=== PATIENT | male | born 1945 | race Caucasian/White ===

== ENCOUNTER 2016-11-02 23:00 | Emergency (ER) | payer MEDICAID ==
[~2016-11-02] VITALS: Ht 162.6 cm; Wt 88.9 kg
[~2016-11-02 23:00] MED LIST: ACID1TAB7 PO; ASPI-496 PO; ASPI-515 PO; AZIT500T PO; CEFD300C37 PO; CLIN300C93 PO; DOXY100T PO; FLUO20CA19 PO; FLUT1DIS3 INH; INSULIN 70/30 SQ; METH4TAB PO; METO25TA35 PO; METO25TA91 PO; NITR0.4T8 SL; NPH,100V SQ; NPH,100V4 SQ-INSULIN; OXYC1TAB8 PO; PRED10TA PO; PRED50TA PO; PREG50CA PO; SIMV10TA PO; SULF1TAB3 PO; TRAM50TA2 PO
[2016-11-02 23:25] VITALS: BP 131/66
== END 2016-11-02 23:47 | disposition left against medical advice (07) ==
LOC: ED 23:22
DX: F15.10 Other stimulant abuse, uncomplicated (principal); E11.9 Type 2 diabetes mellitus without complications; I10 Essential (primary) hypertension; E78.5 Hyperlipidemia, unspecified; I48.91 Unspecified atrial fibrillation; J44.9 Chronic obstructive pulmonary disease, unspecified; Z95.5 Presence of coronary angioplasty implant and graft
CPT/HCPCS: 99281

== ENCOUNTER 2016-11-10 16:58 | Observation (INO) | payer MEDICAID ==
[~2016-11-10] VITALS: Ht 182.9 cm; Wt 91.2 kg
[2016-11-10] MEDS ORDERED: SODIUM CHLORIDE FLUSH 10ML SYR IVF ONE (18:00)
[2016-11-10 18:09] LABS: ASPARTATE AMINO TRANSFERASE 21 U/L (15-37); BLOOD UREA NITROGEN 23 mg/dL (7-18)
[2016-11-10 18:19] LABS: IS PT STATUS REG ER OR PRE ER? YES
[2016-11-10 18:30] LABS: DAU SCREEN DISCLAIMER
[2016-11-10] MEDS ORDERED: ALBUTEROL/IPRATROPIUM 2.5MG/0.5MG, 3 ML NEB ONE (19:00)
[2016-11-10] MEDS ORDERED: NITROGLYCERIN 0.4 MG BOTTLE (25 TABS) SL PRN (19:00)
[2016-11-10] MEDS ORDERED: hydrALAzine 20 MG/ML, 1ML IVPush PRN (19:00)
[2016-11-10] MEDS ORDERED: ONDANSETRON ODT 4 MG PO PRN (19:00)
[2016-11-10] MEDS ORDERED: ACETAMINOPHEN 325 MG TABLET PO PRN (19:00)
[2016-11-10] MEDS ORDERED: SODIUM CHLORIDE 0.9% 1,000 ML IV SCH (19:30)
[2016-11-10] MEDS ORDERED: ALBUTEROL/IPRATROPIUM 2.5MG/0.5MG, 3 ML NEB STA (20:53)
[2016-11-10] MEDS: SODIUM CHLORIDE 0.9% 1,000 ML IV SCH (22:37)
[2016-11-10 22:40] VITALS: BP 111/60
[2016-11-10] MEDS ORDERED: DEXTROSE 50%, 50ML SYRINGE IVPush PRN (23:00)
[2016-11-10] MEDS ORDERED: GLUCAGON 1 MG IM PRN (23:00)
[2016-11-10] MEDS ORDERED: DEXTROSE 4 GM TAB.CHEW PO PRN (23:00)
[2016-11-11 00:43] LABS: IS PT STATUS REG ER OR PRE ER? NO
[2016-11-11 01:53] VITALS: BP 127/69
[2016-11-11] MEDS ORDERED: ASPIRIN 81 MG TABLET EC PO SCH (06:00)
[2016-11-11] MEDS ORDERED: INSULIN ASPART 100 UNITS/ML, PEN SQ-INSULIN SCH (07:00)
[2016-11-11 08:12] VITALS: BP 127/63
[2016-11-11] MEDS: SODIUM CHLORIDE 0.9% 1,000 ML IV SCH (08:13)
[2016-11-11] MEDS ORDERED: SODIUM CHLORIDE FLUSH 10ML SYR IVF SCH (09:00)
[2016-11-11] MEDS ORDERED: ALBU18HF INH (11:10)
[2016-11-11] MEDS ORDERED: ATOR40TA78 PO (11:10)
[2016-11-11] MEDS ORDERED: METF-649 PO (11:10)
[2016-11-11] MEDS ORDERED: BUDE10.22 INH (11:10)
[2016-11-11] MEDS ORDERED: METO25TA9 PO (11:10)
[2016-11-11] MEDS ORDERED: ATORVASTATIN 40 MG TABLET PO SCH (21:00)
== END 2016-11-11 12:40 | disposition home or self-care (01) ==
LOC: ED 17:40 → EDIP 18:30 → INTOOBSV 18:30 → 5SO 19:56
PROVIDERS: ADMIT Family Medicine; ATTEND Family Medicine
DX: R07.2 Precordial pain (principal); J44.9 Chronic obstructive pulmonary disease, unspecified; E11.9 Type 2 diabetes mellitus without complications; E78.5 Hyperlipidemia, unspecified; F32.9 Major depressive disorder, single episode, unspecified; I11.0 Hypertensive heart disease with heart failure; I50.9 Heart failure, unspecified; I25.110 Atherosclerotic heart disease of native coronary artery with unstable angina pectoris; I25.2 Old myocardial infarction; R45.851 Suicidal ideations; I48.91 Unspecified atrial fibrillation; F17.210 Nicotine dependence, cigarettes, uncomplicated; Z86.73 Personal history of transient ischemic attack (TIA), and cerebral infarction without residual deficits; Z79.82 Long term (current) use of aspirin; Z79.899 Other long term (current) drug therapy; Z87.01 Personal history of pneumonia (recurrent); Z91.14 Patient's other noncompliance with medication regimen; Z91.19 Patient's noncompliance with other medical treatment and regimen; Z95.5 Presence of coronary angioplasty implant and graft
CPT/HCPCS: 36415; 71010; 80053; 80307; 82728; 82962; 83036; 83540; 83550; 83880; 84484; 85025; 85610; 93005; 96360; 96361; 99285; G0378; J7030

== ENCOUNTER 2016-11-17 15:53 | Emergency (ER) | payer MEDICAID ==
[~2016-11-17] VITALS: Ht 182.9 cm; Wt 91.1 kg
[~2016-11-17 15:53] MED LIST changes: +ALBU18HF INH; +ATOR40TA78 PO; +BUDE10.22 INH; +METF-649 PO; +METO25TA9 PO
[2016-11-17 17:42] LABS: ACETAMINOPHEN 18 mcg/mL (10-30); BLOOD UREA NITROGEN 21 mg/dL (7-18)
[2016-11-17 17:55] LABS: DAU SCREEN DISCLAIMER
[2016-11-17] MEDS ORDERED: HALOPERIDOL 5 MG/ML IM PRN (19:30)
[2016-11-17] MEDS ORDERED: ACETAMINOPHEN 325 MG TABLET PO PRN (19:30)
[2016-11-17] MEDS ORDERED: BENZTROPINE 1 MG TABLET PO PRN (19:30)
[2016-11-18] MEDS: ASPIRIN 81 MG TABLET EC PO SCH (09:49)
[2016-11-18] MEDS ORDERED: HALOPERIDOL 5 MG/ML IM PRN (19:30)
[2016-11-18] MEDS ORDERED: ACETAMINOPHEN 325 MG TABLET PO PRN (19:30)
[2016-11-19 10:45] VITALS: BP 135/80
[2016-11-19] MEDS: ASPIRIN 81 MG TABLET EC PO SCH (11:30)
[2016-11-19] MEDS ORDERED: BENZ1TAB61 PO (12:42)
== END 2016-11-19 13:01 ==
LOC: ED 16:24 → UNDOADMOB 19:07 → EDIP 19:07 → ED 11-19 13:01
DX: F20.9 Schizophrenia, unspecified (principal); E11.9 Type 2 diabetes mellitus without complications; I11.0 Hypertensive heart disease with heart failure; I50.9 Heart failure, unspecified; I25.2 Old myocardial infarction; G43.909 Migraine, unspecified, not intractable, without status migrainosus; J44.9 Chronic obstructive pulmonary disease, unspecified; Z86.73 Personal history of transient ischemic attack (TIA), and cerebral infarction without residual deficits; F19.10 Other psychoactive substance abuse, uncomplicated
CPT/HCPCS: 36415; 80048; 80307; 80329; 82040; 85025; 99285; G0480

== ENCOUNTER 2016-12-11 15:53 | Observation (INO) | payer MEDICAID ==
[~2016-12-11] VITALS: Ht 182.9 cm; Wt 89.4 kg
[~2016-12-11 15:53] MED LIST changes: +BENZ1TAB61 PO; +CLIN300C8 PO; -CLIN300C93 PO; +NITR0.4T28 SL; -NITR0.4T8 SL; -NPH,100V4 SQ-INSULIN; +NPH,100V5 SQ-INSULIN; +SULF-169 PO; -SULF1TAB3 PO
[2016-12-11 16:59] LABS: DAU SCREEN DISCLAIMER
[2016-12-11 17:05] LABS: HEMATOCRIT 39.8 % (39.2-51.8); WHITE BLOOD COUNT 5.1 x10^3/uL (3.4-10)
[2016-12-11 17:13] LABS: ASPARTATE AMINO TRANSFERASE 13 U/L (15-37); BLOOD UREA NITROGEN 20 mg/dL (7-18)
[2016-12-11 17:15] LABS: ACETAMINOPHEN < 2 mcg/mL (10-30)
[2016-12-12] MEDS ORDERED: ONDANSETRON ODT 4 MG PO PRN (01:00)
[2016-12-12] MEDS ORDERED: ACETAMINOPHEN 325 MG TABLET PO PRN (01:00)
[2016-12-12 05:50] VITALS: BP 117/61
[2016-12-12] MEDS: INSULIN REGULAR 100 UNITS/ML, 3ML VIAL SQ-INSULIN SCH ×2 (07:00→11:00)
[2016-12-12 08:00] VITALS: BP 114/65
[2016-12-12] MEDS ORDERED: ASPIRIN 81 MG TABLET EC PO SCH (09:00)
== END 2016-12-12 13:00 ==
LOC: ED 17:17 → EDIP 18:52 → INTOOBSV 12-12 00:54 → OBSVTOIN 12-12 00:54 → 3E 12-12 02:01
PROVIDERS: ADMIT Internal Medicine; ATTEND Internal Medicine
DX: R45.851 Suicidal ideations (principal); D50.9 Iron deficiency anemia, unspecified; F32.9 Major depressive disorder, single episode, unspecified; I25.10 Atherosclerotic heart disease of native coronary artery without angina pectoris; I50.32 Chronic diastolic (congestive) heart failure; J44.9 Chronic obstructive pulmonary disease, unspecified; E11.65 Type 2 diabetes mellitus with hyperglycemia; E78.5 Hyperlipidemia, unspecified; I25.2 Old myocardial infarction; I63.9 Cerebral infarction, unspecified; Z91.19 Patient's noncompliance with other medical treatment and regimen; Z91.5 Personal history of self-harm; Z95.5 Presence of coronary angioplasty implant and graft
CPT/HCPCS: 36415; 80053; 80307; 80329; 85025; 99285; G0378; G0480

== ENCOUNTER 2016-12-29 02:33 | Inpatient (IN) | payer MEDICAID ==
[~2016-12-29] VITALS: Ht 175.3 cm; Wt 90.8 kg
[2016-12-29] MEDS ORDERED: NITROGLYCERIN SINGLE TAB 0.4 MG SL PRN (03:00)
[2016-12-29] MEDS ORDERED: ASPIRIN 81 MG TABLET CHEW PO ONE (03:00)
[2016-12-29] MEDS ORDERED: SODIUM CHLORIDE FLUSH 10ML SYR IVF ONE (03:00)
[2016-12-29] MEDS ORDERED: ASPIRIN 81 MG TABLET CHEW ONE (03:20)
[2016-12-29] MEDS ORDERED: NITROGLYCERIN SINGLE TAB 0.4 MG SL ONE (03:20)
[2016-12-29 03:32] LABS: HEMATOCRIT 41.9 % (39.2-51.8); HEMOGLOBIN 13.6 g/dL (13.7-18.0); WHITE BLOOD COUNT 6.3 x10^3/uL (3.4-10)
[2016-12-29 03:34] LABS: BLOOD UREA NITROGEN 18 mg/dL (7-18)
[2016-12-29 03:38] LABS: IS PT STATUS REG ER OR PRE ER? YES
[2016-12-29] MEDS ORDERED: SODIUM CHLORIDE 0.9% 1,000 ML IV SCH (04:16)
[2016-12-29] MEDS ORDERED: hydrALAzine 20 MG/ML, 1ML IVPush PRN (04:30)
[2016-12-29] MEDS ORDERED: ENALAPRILAT 1.25 MG/ML, 2ML IVPush PRN (04:30)
[2016-12-29] MEDS ORDERED: BISACODYL 10 MG SUPP PR PRN (04:30)
[2016-12-29] MEDS ORDERED: ONDANSETRON 2MG/ML, 2ML IVPush PRN (04:30)
[2016-12-29] MEDS: ENOXAPARIN 40 MG/0.4 ML SQ SCH ×2 (04:30→05:42)
[2016-12-29] MEDS ORDERED: OXYcodone IR 5MG TABLET PO PRN (04:30)
[2016-12-29] MEDS ORDERED: ACETAMINOPHEN 325 MG TABLET PO PRN (04:30)
[2016-12-29] MEDS ORDERED: morphine SULFATE 10 MG/ML, 1ML IVPush PRN (04:30)
[2016-12-29] MEDS ORDERED: NICOTINE 7 MG/24 HR PATCH.TD24 TD SCH (04:30)
[2016-12-29] MEDS ORDERED: ALBUTEROL SULFATE 2.5 MG/3 ML NPPB PRN (04:30)
[2016-12-29] MEDS ORDERED: POLYETHYLENE GLYCOL 17 GM PACKET PO PRN (04:30)
[2016-12-29 05:22] VITALS: BP 128/70
[2016-12-29 05:25] LABS: FERRITIN 34.7 ng/mL (26-388)
[2016-12-29] MEDS ORDERED: INSULIN ASPART 100 UNITS/ML, PEN SQ-INSULIN SCH (07:00)
[2016-12-29 08:00] VITALS: BP 119/66
[2016-12-29] MEDS ORDERED: REGADENOSON 0.4 MG/5 ML SYRINGE ONE (08:06)
[2016-12-29] MEDS ORDERED: SENNA/DOCUSATE TABLET PO SCH (09:00)
== END 2016-12-29 09:04 | disposition left against medical advice (07) | DRG 313 ==
LOC: ED 03:04 → EDIP 04:17 → 5SO 05:09
PROVIDERS: ADMIT Internal Medicine; ATTEND Internal Medicine
DX: R07.89 Other chest pain (principal); I25.10 Atherosclerotic heart disease of native coronary artery without angina pectoris; E44.0 Moderate protein-calorie malnutrition; I50.32 Chronic diastolic (congestive) heart failure; E11.40 Type 2 diabetes mellitus with diabetic neuropathy, unspecified; J44.9 Chronic obstructive pulmonary disease, unspecified; D50.9 Iron deficiency anemia, unspecified; F17.210 Nicotine dependence, cigarettes, uncomplicated; F32.9 Major depressive disorder, single episode, unspecified; J98.11 Atelectasis; E78.5 Hyperlipidemia, unspecified; Z86.73 Personal history of transient ischemic attack (TIA), and cerebral infarction without residual deficits; Z68.29 Body mass index [BMI] 29.0-29.9, adult
CPT/HCPCS: 36415; 71010; 80048; 82040; 82306; 82607; 82728; 82962; 83540; 83550; 84466; 84484; 85025; 93005; 99285; J1650; J2785; J7030

== ENCOUNTER 2017-01-03 13:39 | Observation (INO) | payer MEDICAID ==
[~2017-01-03] VITALS: Ht 175.3 cm; Wt 90.0 kg
[~2017-01-03 13:39] MED LIST changes: +METO-282 PO; -METO25TA9 PO
[2017-01-03 14:10] LABS: HEMATOCRIT 42.7 % (39.2-51.8); HEMOGLOBIN 14.1 g/dL (13.7-18.0); WHITE BLOOD COUNT 6.7 x10^3/uL (3.4-10)
[2017-01-03 14:21] LABS: ASPARTATE AMINO TRANSFERASE 16 U/L (15-37); BLOOD UREA NITROGEN 14 mg/dL (7-18)
[2017-01-03 14:32] LABS: ACETAMINOPHEN < 2 mcg/mL (10-30)
[2017-01-03] MEDS ORDERED: POLYETHYLENE GLYCOL 17 GM PACKET PO PRN (15:30)
[2017-01-03] MEDS ORDERED: ONDANSETRON ODT 4 MG PO PRN (15:30)
[2017-01-03 16:09] LABS: DAU SCREEN DISCLAIMER
[2017-01-03 19:38] VITALS: BP 135/58
[2017-01-03] MEDS: ATORVASTATIN 20 MG TABLET PO SCH (20:07)
[2017-01-04] MEDS: ASPIRIN 81 MG TABLET EC PO SCH (06:27)
[2017-01-04 08:29] VITALS: BP 106/62
[2017-01-04] MEDS ORDERED: SENNA/DOCUSATE TABLET PO SCH (09:00)
[2017-01-04 09:36] LABS: HEMATOCRIT 40.5 % (39.2-51.8); HEMOGLOBIN 13.2 g/dL (13.7-18.0); WHITE BLOOD COUNT 6.5 x10^3/uL (3.4-10)
[2017-01-04 09:40] LABS: ASPARTATE AMINO TRANSFERASE 11 U/L (15-37); BLOOD UREA NITROGEN 13 mg/dL (7-18)
[2017-01-04] MEDS ORDERED: ZIPRASIDONE 20 MG INJ IM PRN (13:30)
[2017-01-04] MEDS ORDERED: LORazepam 1MG TABLET PO PRN (13:30)
[2017-01-04] MEDS ORDERED: LORazepam 2 MG/ML, 1ML IM PRN ×2 (13:30)
[2017-01-04 19:33] VITALS: BP 104/56
[2017-01-04] MEDS: ATORVASTATIN 20 MG TABLET PO SCH (21:24)
[2017-01-04] MEDS: RISPERIDONE 0.5 MG TABLET PO SCH (21:25)
[2017-01-05] MEDS: ASPIRIN 81 MG TABLET EC PO SCH (06:25)
[2017-01-05 08:00] VITALS: BP 115/56
[2017-01-05] MEDS: SENNA/DOCUSATE TABLET PO SCH (08:44)
[2017-01-05 08:53] LABS: FERRITIN 27.1 ng/mL (26-388)
[2017-01-05] MEDS: ACETAMINOPHEN 325 MG TABLET PO PRN (16:56)
[2017-01-05 19:38] VITALS: BP 133/65
[2017-01-05] MEDS: ATORVASTATIN 20 MG TABLET PO SCH (20:12)
[2017-01-05] MEDS: LORazepam 1MG TABLET PO PRN (20:26)
[2017-01-05] MEDS: RISPERIDONE 0.5 MG TABLET PO SCH (20:26)
[2017-01-06 07:15] VITALS: BP 122/60
[2017-01-06] MEDS: ACETAMINOPHEN 325 MG TABLET PO PRN (08:08)
[2017-01-06] MEDS: FERROUS SULFATE 325 MG TABLET PO SCH (08:08)
[2017-01-06] MEDS: ASPIRIN 81 MG TABLET EC PO SCH (08:14)
[2017-01-06] MEDS: FOLIC ACID 1 MG TABLET PO SCH (08:14)
[2017-01-06] MEDS: SENNA/DOCUSATE TABLET PO SCH (08:18)
[2017-01-06 19:38] VITALS: BP 90/67
[2017-01-06] MEDS: RISPERIDONE 0.5 MG TABLET PO SCH (20:44)
[2017-01-06] MEDS: ATORVASTATIN 20 MG TABLET PO SCH (20:44)
[2017-01-06] MEDS: LORazepam 1MG TABLET PO PRN (20:48)
[2017-01-07] MEDS: ASPIRIN 81 MG TABLET EC PO SCH (06:29)
[2017-01-07] MEDS: FERROUS SULFATE 325 MG TABLET PO SCH (08:00)
[2017-01-07 08:12] VITALS: BP 115/64
[2017-01-07] MEDS: SENNA/DOCUSATE TABLET PO SCH (08:29)
[2017-01-07] MEDS: FOLIC ACID 1 MG TABLET PO SCH (08:29)
[2017-01-07 19:15] VITALS: BP 124/68
[2017-01-07] MEDS: ATORVASTATIN 20 MG TABLET PO SCH (19:35)
[2017-01-07] MEDS: RISPERIDONE 0.5 MG TABLET PO SCH (19:35)
[2017-01-07] MEDS: LORazepam 1MG TABLET PO PRN (19:35)
[2017-01-07] MEDS: ACETAMINOPHEN 325 MG TABLET PO PRN (19:36)
[2017-01-07] MEDS ORDERED: DIPHENHYDRAMINE 25 MG CAPSULE ONE (22:16)
[2017-01-07] MEDS ORDERED: DIPHENHYDRAMINE 25 MG CAPSULE PO PRN (22:30)
[2017-01-08] MEDS: ASPIRIN 81 MG TABLET EC PO SCH (06:04)
[2017-01-08 07:57] VITALS: BP 106/59
[2017-01-08] MEDS: FOLIC ACID 1 MG TABLET PO SCH (08:32)
[2017-01-08] MEDS: FERROUS SULFATE 325 MG TABLET PO SCH (08:32)
[2017-01-08] MEDS: SENNA/DOCUSATE TABLET PO SCH (08:36)
[2017-01-08 19:42] VITALS: BP 119/62
[2017-01-08] MEDS: LORazepam 1MG TABLET PO PRN (19:55)
[2017-01-08] MEDS: ATORVASTATIN 20 MG TABLET PO SCH (19:55)
[2017-01-08] MEDS: RISPERIDONE 0.5 MG TABLET PO SCH (19:56)
[2017-01-09] MEDS: ASPIRIN 81 MG TABLET EC PO SCH (06:13)
[2017-01-09 07:25] VITALS: BP 106/61
[2017-01-09] MEDS: FERROUS SULFATE 325 MG TABLET PO SCH (08:30)
[2017-01-09] MEDS: FOLIC ACID 1 MG TABLET PO SCH (08:30)
[2017-01-09] MEDS: LORazepam 1MG TABLET PO PRN ×2 (08:30→20:07)
[2017-01-09] MEDS: SENNA/DOCUSATE TABLET PO SCH (08:30)
[2017-01-09 19:35] VITALS: BP 105/39
[2017-01-09] MEDS: ATORVASTATIN 20 MG TABLET PO SCH (20:04)
[2017-01-09] MEDS: RISPERIDONE 0.5 MG TABLET PO SCH (20:04)
[2017-01-10] MEDS: ASPIRIN 81 MG TABLET EC PO SCH (05:08)
[2017-01-10 07:27] VITALS: BP 138/79
[2017-01-10] MEDS: FOLIC ACID 1 MG TABLET PO SCH (08:42)
[2017-01-10] MEDS: SENNA/DOCUSATE TABLET PO SCH (08:42)
[2017-01-10] MEDS: FERROUS SULFATE 325 MG TABLET PO SCH (08:42)
[2017-01-10] MEDS ORDERED: ASPI-621 PO (08:59)
[2017-01-10] MEDS ORDERED: RISP0.5T24 PO (08:59)
[2017-01-10] MEDS ORDERED: ATOR20TA9 PO (08:59)
[2017-01-10] MEDS ORDERED: FOLI-17 PO (08:59)
[2017-01-10] MEDS ORDERED: FERR-36 PO (08:59)
[2017-01-10] MEDS ORDERED: METO25TA91 PO (09:00)
== END 2017-01-10 13:06 | disposition home or self-care (01) ==
LOC: ED 15:05 → EDIP 15:06 → ED 15:32 → 3E 17:47
PROVIDERS: ADMIT Hospitalist; ATTEND Hospitalist
DX: R45.851 Suicidal ideations (principal); E11.9 Type 2 diabetes mellitus without complications; E78.5 Hyperlipidemia, unspecified; I25.10 Atherosclerotic heart disease of native coronary artery without angina pectoris; Z86.73 Personal history of transient ischemic attack (TIA), and cerebral infarction without residual deficits; J44.9 Chronic obstructive pulmonary disease, unspecified; D75.89 Other specified diseases of blood and blood-forming organs; I50.32 Chronic diastolic (congestive) heart failure; F17.210 Nicotine dependence, cigarettes, uncomplicated; F20.9 Schizophrenia, unspecified; Z95.5 Presence of coronary angioplasty implant and graft
CPT/HCPCS: 36415; 80053; 80061; 80307; 80329; 81001; 82607; 82728; 82746; 83540; 83550; 83735; 84439; 84443; 85025; 87086; 99285; G0378; Q0163; G0479; G0480

== ENCOUNTER 2017-03-02 13:12 | Emergency (ER) | payer MEDICAID ==
[~2017-03-02] VITALS: Ht 182.9 cm; Wt 87.4 kg
[~2017-03-02 13:12] MED LIST changes: +ASPI-621 PO; +ATOR20TA9 PO; +FERR-36 PO; +FOLI-17 PO; +RISP0.5T24 PO
[2017-03-02] MEDS ORDERED: ACETAMINOPHEN 325 MG TABLET ONE (13:55)
[2017-03-02] MEDS ORDERED: ACETAMINOPHEN 325 MG TABLET PO ONE (14:00)
[2017-03-02 14:34] VITALS: BP 125/59
== END 2017-03-02 15:20 | disposition home or self-care (01) ==
LOC: ED 14:59
DX: S22.31XA Fracture of one rib, right side, initial encounter for closed fracture (principal); S09.90XA Unspecified injury of head, initial encounter; G43.909 Migraine, unspecified, not intractable, without status migrainosus; I25.10 Atherosclerotic heart disease of native coronary artery without angina pectoris; I48.91 Unspecified atrial fibrillation; E78.5 Hyperlipidemia, unspecified; E11.9 Type 2 diabetes mellitus without complications; I10 Essential (primary) hypertension; J44.9 Chronic obstructive pulmonary disease, unspecified; I25.2 Old myocardial infarction; Z86.73 Personal history of transient ischemic attack (TIA), and cerebral infarction without residual deficits; Z89.429 Acquired absence of other toe(s), unspecified side; W19.XXXA Unspecified fall, initial encounter; Y93.89 Activity, other specified; Y92.89 Other specified places as the place of occurrence of the external cause; Y99.8 Other external cause status
CPT/HCPCS: 70450; 93005; 99284

== ENCOUNTER 2017-04-01 12:24 | Emergency (ER) | payer MEDICAID ==
[~2017-04-01] VITALS: Ht 180.3 cm; Wt 88.9 kg
[2017-04-01 12:46] VITALS: BP 117/63
[2017-04-01] MEDS ORDERED: LIDOCAINE 1%, 20ML SQ ONE (13:30)
[2017-04-01] MEDS ORDERED: HYDROcodone/APAP 5/325 TABLET ONE (13:57)
[2017-04-01] MEDS ORDERED: BACITRACIN ZINC OINT 500U/GM, 0.9 GM ONE (14:00)
[2017-04-01] MEDS ORDERED: HYDROcodone/APAP 5/325 TABLET PO ONE (14:00)
== END 2017-04-01 14:07 | disposition home or self-care (01) ==
LOC: ED 14:01
DX: L03.012 Cellulitis of left finger (principal); G43.909 Migraine, unspecified, not intractable, without status migrainosus; J44.9 Chronic obstructive pulmonary disease, unspecified; E11.9 Type 2 diabetes mellitus without complications; I25.10 Atherosclerotic heart disease of native coronary artery without angina pectoris; I25.2 Old myocardial infarction; I48.91 Unspecified atrial fibrillation; E78.5 Hyperlipidemia, unspecified; I50.9 Heart failure, unspecified; I48.92 Unspecified atrial flutter; I11.0 Hypertensive heart disease with heart failure
CPT/HCPCS: 10060; 99283; J3490

== ENCOUNTER 2017-06-16 19:28 | Emergency (ER) | payer MEDICAID ==
[~2017-06-16] VITALS: Ht 170.2 cm; Wt 89.2 kg
[~2017-06-16 19:28] MED LIST changes: -FERR-36 PO; +FERR-51 PO
[2017-06-16 20:23] LABS: BASOPHILS # (AUTO) 0.02 x10^3/uL (0-0.1); BASOPHILS % (AUTO) 0 % (0-1); EOSINOPHILS # (AUTO) 0.31 x10^3/uL (0-0.4); EOSINOPHILS % (AUTO) 4 % (1-7); LYMPHOCYTES # (AUTO) 0.67 x10^3/uL (1-3.4); LYMPHOCYTES % (AUTO) 8 % (22-44); MD NO; MEAN CORPUSCULAR HEMOGLOBIN 24.9 pg (27.5-34.5); MEAN CORPUSCULAR HGB CONC 32.2 g/dL (33.2-36.2); MEAN CORPUSCULAR VOLUME 77.2 fL (81-97); MEAN PLATELET VOLUME 8.8 fL (7.4-10.4); MONOCYTES # (AUTO) 0.76 x10^3/uL (0.2-0.8); MONOCYTES % (AUTO) 9 % (2-9); NEUTROPHILS # (AUTO) 6.93 x10^3/uL (1.8-6.8); NEUTROPHILS % (AUTO) 80 % (42-75); PLATELET COUNT 217 x10^3/uL (130-400); RED BLOOD COUNT 5.53 x10^6/uL (4.38-5.82); RED CELL DISTRIBUTION WIDTH 15.7 % (9.4-14.8)
[2017-06-16 20:31] LABS: ALBUMIN 3.6 g/dL (3.4-5.0); ANION GAP 8 mmol/L (5-15); CALCIUM 9.1 mg/dL (8.5-10.1); CHLORIDE 102 mmol/L (98-107); CREATININE 0.97 mg/dL (0.7-1.3)
[2017-06-16 20:32] LABS: ACETAMINOPHEN < 2 mcg/mL (10-30)
[2017-06-17 02:03] LABS: AMPHETAMINE SCREEN, URINE Negative (Negative); BARBITURATE SCREEN, URINE Negative (Negative); BENZODIAZEPINE SCREEN, URINE Negative (Negative); CANNABINOID SCREEN, URINE Negative (Negative); COCAINE SCREEN, URINE Negative (Negative); METHADONE SCREEN, URINE Negative (Negative); OPIATE SCREEN, URINE Negative (Negative)
[2017-06-17 04:05] VITALS: BP 134/88
== END 2017-06-17 03:59 | disposition home or self-care (01) ==
LOC: ED 20:29
DX: S82.092A Other fracture of left patella, initial encounter for closed fracture (principal); E11.9 Type 2 diabetes mellitus without complications; E78.5 Hyperlipidemia, unspecified; E87.1 Hypo-osmolality and hyponatremia; F20.9 Schizophrenia, unspecified; F32.9 Major depressive disorder, single episode, unspecified; Z79.899 Other long term (current) drug therapy; G43.909 Migraine, unspecified, not intractable, without status migrainosus; I25.10 Atherosclerotic heart disease of native coronary artery without angina pectoris; I48.91 Unspecified atrial fibrillation; J44.9 Chronic obstructive pulmonary disease, unspecified; Z59.0 Homelessness; Y93.39 Activity, other involving climbing, rappelling and jumping off; Y99.8 Other external cause status; Y92.89 Other specified places as the place of occurrence of the external cause
CPT/HCPCS: 29505; 36415; 80048; 80307; 80329; 82040; 85025; 99285; G0480

== ENCOUNTER 2018-03-28 17:44 | Observation (INO) | payer OTHER ==
[~2018-03-28] VITALS: Ht 172.7 cm; Wt 94.6 kg
[~2018-03-28 17:44] MED LIST changes: -ASPI-621 PO; +ASPI81TA45 PO; +ATOR20TA37 PO; -ATOR20TA9 PO
[2018-03-28 18:24] LABS: BASOPHILS # (AUTO) 0.02 x10^3/uL (0-0.1); BASOPHILS % (AUTO) 0 % (0-1); EOSINOPHILS # (AUTO) 0.32 x10^3/uL (0-0.4); EOSINOPHILS % (AUTO) 5 % (1-7); LYMPHOCYTES # (AUTO) 0.85 x10^3/uL (1-3.4); LYMPHOCYTES % (AUTO) 14 % (22-44); MD NO; MEAN CORPUSCULAR HEMOGLOBIN 25.4 pg (27.5-34.5); MEAN CORPUSCULAR HGB CONC 32.4 g/dL (33.2-36.2); MEAN CORPUSCULAR VOLUME 78.5 fL (81-97); MEAN PLATELET VOLUME 7.5 fL (7.4-10.4); MONOCYTES % (AUTO) 11 % (2-9); NEUTROPHILS # (AUTO) 4.28 x10^3/uL (1.8-6.8); NEUTROPHILS % (AUTO) 69 % (42-75); PLATELET COUNT 261 x10^3/uL (130-400); RED BLOOD COUNT 4.67 x10^6/uL (4.38-5.82); RED CELL DISTRIBUTION WIDTH 17.4 % (9.4-14.8)
[2018-03-28 18:37] LABS: ALBUMIN 2.9 g/dL (3.4-5.0); ANION GAP 8 mmol/L (5-15); CALCIUM 8.7 mg/dL (8.5-10.1); CHLORIDE 104 mmol/L (98-107)
[2018-03-28 18:42] LABS: ALANINE AMINOTRANSFERASE 32 U/L (12-78); ALKALINE PHOSPHATASE 186 U/L (45-117); BILIRUBIN,TOTAL 0.5 mg/dL (0.2-1.0); SALICYLATE LEVEL 2.2 mg/dL (2.8-20.0); TOTAL PROTEIN 7.5 g/dL (6.4-8.2)
[2018-03-28 18:44] LABS: ACETAMINOPHEN < 2 mcg/mL (10-30)
[2018-03-28] MEDS ORDERED: ONDANSETRON ODT 4 MG PO PRN (21:30)
[2018-03-28] MEDS: ATORVASTATIN 20 MG TABLET PO SCH (21:30)
[2018-03-28 21:36] LABS: AMPHETAMINE SCREEN, URINE Negative (Negative); BARBITURATE SCREEN, URINE Negative (Negative); BENZODIAZEPINE SCREEN, URINE Negative (Negative); CANNABINOID SCREEN, URINE Negative (Negative); COCAINE SCREEN, URINE Negative (Negative); METHADONE SCREEN, URINE Negative (Negative); OPIATE SCREEN, URINE Negative (Negative)
[2018-03-29] MEDS ORDERED: METOPROLOL TARTRATE 25 MG TABLET ONE (06:09)
[2018-03-29] MEDS ORDERED: ASPIRIN 81 MG TABLET EC ONE (06:10)
[2018-03-29] MEDS: ASPIRIN 81 MG TABLET EC PO SCH (06:50)
[2018-03-29] MEDS: METOPROLOL SUCCINATE 25 MG TAB.ER.24H PO SCH (06:50)
[2018-03-29] MEDS: FOLIC ACID 1 MG TABLET PO SCH (10:57)
[2018-03-29] MEDS: FERROUS GLUCONATE 324 MG TABLET PO SCH (10:57)
[2018-03-30] MEDS: ASPIRIN 81 MG TABLET EC PO SCH (06:32)
[2018-03-30] MEDS: FERROUS GLUCONATE 324 MG TABLET PO SCH ×3 (06:32→17:00)
[2018-03-30] MEDS: ATORVASTATIN 20 MG TABLET PO SCH ×2 (06:32→18:12)
[2018-03-30] MEDS: METOPROLOL SUCCINATE 25 MG TAB.ER.24H PO SCH (06:32)
[2018-03-30] MEDS: FOLIC ACID 1 MG TABLET PO SCH (09:00)
[2018-03-30] MEDS ORDERED: ACETAMINOPHEN 325 MG TABLET ONE (13:49)
[2018-03-30] MEDS: ACETAMINOPHEN 325 MG TABLET PO PRN (13:54)
[2018-03-31] MEDS ORDERED: ASPIRIN 81 MG TABLET CHEW ONE (06:13)
[2018-03-31] MEDS ORDERED: ASPIRIN 81 MG TABLET EC ONE (06:16)
[2018-03-31] MEDS: METOPROLOL SUCCINATE 25 MG TAB.ER.24H PO SCH (06:16)
[2018-03-31] MEDS: ASPIRIN 81 MG TABLET EC PO SCH (06:22)
[2018-03-31] MEDS ORDERED: DOCUSATE 100 MG CAPSULE ONE (07:31)
[2018-03-31] MEDS: FERROUS GLUCONATE 324 MG TABLET PO SCH ×2 (08:00→21:22)
[2018-03-31] MEDS: FOLIC ACID 1 MG TABLET PO SCH (09:00)
[2018-03-31] MEDS: ATORVASTATIN 20 MG TABLET PO SCH (21:22)
[2018-04-01] MEDS ORDERED: ASPIRIN 81 MG TABLET EC ONE (05:34)
[2018-04-01] MEDS: ASPIRIN 81 MG TABLET EC PO SCH (05:44)
[2018-04-01] MEDS: METOPROLOL SUCCINATE 25 MG TAB.ER.24H PO SCH (05:44)
[2018-04-01] MEDS: FOLIC ACID 1 MG TABLET PO SCH (09:51)
[2018-04-01] MEDS: FERROUS GLUCONATE 324 MG TABLET PO SCH ×2 (09:51→17:00)
[2018-04-01] MEDS: ATORVASTATIN 20 MG TABLET PO SCH (21:44)
[2018-04-02] MEDS: ASPIRIN 81 MG TABLET EC PO SCH (08:35)
[2018-04-02] MEDS: FERROUS GLUCONATE 324 MG TABLET PO SCH ×2 (08:36→17:31)
[2018-04-02] MEDS: METOPROLOL SUCCINATE 25 MG TAB.ER.24H PO SCH (08:36)
[2018-04-02] MEDS: FOLIC ACID 1 MG TABLET PO SCH (08:36)
[2018-04-02] MEDS: ATORVASTATIN 20 MG TABLET PO SCH (21:00)
[2018-04-03] MEDS: FERROUS GLUCONATE 324 MG TABLET PO SCH ×3 (08:00→17:00)
[2018-04-03] MEDS ORDERED: GABAPENTIN 300 MG CAPSULE ONE (21:35)
[2018-04-03] MEDS: GABAPENTIN 300 MG CAPSULE PO PRN (21:37)
[2018-04-03] MEDS: ATORVASTATIN 20 MG TABLET PO SCH (23:07)
[2018-04-04] MEDS ORDERED: ASPIRIN 81 MG TABLET EC ONE (09:05)
[2018-04-04] MEDS: ASPIRIN 81 MG TABLET EC PO SCH (09:06)
[2018-04-04] MEDS: FOLIC ACID 1 MG TABLET PO SCH ×2 (10:29→20:10)
[2018-04-04] MEDS: METOPROLOL SUCCINATE 25 MG TAB.ER.24H PO SCH ×2 (10:29→20:30)
[2018-04-04] MEDS: FERROUS GLUCONATE 324 MG TABLET PO SCH ×2 (10:39→17:00)
[2018-04-04] MEDS: ATORVASTATIN 20 MG TABLET PO SCH (21:51)
[2018-04-05 08:00] VITALS: BP 106/52
[2018-04-05] MEDS: ASPIRIN 81 MG TABLET EC PO SCH (08:47)
[2018-04-05] MEDS: FERROUS GLUCONATE 324 MG TABLET PO SCH ×2 (08:47→18:15)
[2018-04-05] MEDS: METOPROLOL SUCCINATE 25 MG TAB.ER.24H PO SCH (08:47)
[2018-04-05] MEDS: FOLIC ACID 1 MG TABLET PO SCH (08:48)
[2018-04-05 19:44] VITALS: BP 128/61
[2018-04-05] MEDS: ATORVASTATIN 20 MG TABLET PO SCH (20:50)
[2018-04-06 08:00] VITALS: BP 96/64
[2018-04-06] MEDS ORDERED: METOPROLOL SUCCINATE 25 MG TAB.ER.24H PO SCH (09:00)
[2018-04-06] MEDS: ASPIRIN 81 MG TABLET EC PO SCH (09:08)
[2018-04-06] MEDS: FERROUS GLUCONATE 324 MG TABLET PO SCH ×2 (09:08→18:04)
[2018-04-06] MEDS: FOLIC ACID 1 MG TABLET PO SCH (09:08)
[2018-04-06] MEDS: DULOXETINE 20 MG CAPSULE.DR PO SCH ×2 (12:23→20:30)
[2018-04-06] MEDS: METOPROLOL SUCCINATE 25 MG TAB.ER.24H PO SCH (12:23)
[2018-04-06 19:10] VITALS: BP 131/62
[2018-04-06] MEDS: ATORVASTATIN 20 MG TABLET PO SCH (20:30)
[2018-04-07 07:30] VITALS: BP 115/63
[2018-04-07] MEDS: FOLIC ACID 1 MG TABLET PO SCH (07:53)
[2018-04-07] MEDS: DULOXETINE 20 MG CAPSULE.DR PO SCH ×2 (07:53→20:35)
[2018-04-07] MEDS: FERROUS GLUCONATE 324 MG TABLET PO SCH ×2 (07:54→17:13)
[2018-04-07] MEDS: ASPIRIN 81 MG TABLET EC PO SCH (07:54)
[2018-04-07] MEDS: METOPROLOL SUCCINATE 25 MG TAB.ER.24H PO SCH (07:55)
[2018-04-07 19:33] VITALS: BP 130/55
[2018-04-07] MEDS: ATORVASTATIN 20 MG TABLET PO SCH (20:35)
[2018-04-08 08:04] VITALS: BP 96/62
[2018-04-08] MEDS: ASPIRIN 81 MG TABLET EC PO SCH (08:39)
[2018-04-08] MEDS: DULOXETINE 20 MG CAPSULE.DR PO SCH ×2 (08:40→20:16)
[2018-04-08] MEDS: FOLIC ACID 1 MG TABLET PO SCH (08:40)
[2018-04-08] MEDS: FERROUS GLUCONATE 324 MG TABLET PO SCH ×2 (08:40→17:21)
[2018-04-08 09:53] VITALS: BP 108/55
[2018-04-08] MEDS: METOPROLOL SUCCINATE 25 MG TAB.ER.24H PO SCH (10:50)
[2018-04-08] MEDS: AZITHROMYCIN 500 MG TABLET PO SCH (17:22)
[2018-04-08] MEDS: GUAIFENESIN/DM 200-20MG, 10ML UDC PO PRN (17:51)
[2018-04-08 19:41] VITALS: BP 102/46
[2018-04-08] MEDS: GABAPENTIN 300 MG CAPSULE PO PRN (20:16)
[2018-04-08] MEDS: ATORVASTATIN 20 MG TABLET PO SCH (20:16)
[2018-04-08] MEDS: ACETAMINOPHEN 325 MG TABLET PO PRN (20:17)
[2018-04-09 07:17] VITALS: BP 118/62
[2018-04-09] MEDS: ASPIRIN 81 MG TABLET EC PO SCH (08:25)
[2018-04-09] MEDS: AZITHROMYCIN 500 MG TABLET PO SCH (08:25)
[2018-04-09] MEDS: FERROUS GLUCONATE 324 MG TABLET PO SCH ×2 (08:25→19:57)
[2018-04-09] MEDS: DULOXETINE 20 MG CAPSULE.DR PO SCH ×2 (08:25→19:57)
[2018-04-09] MEDS: FOLIC ACID 1 MG TABLET PO SCH (08:26)
[2018-04-09] MEDS: METOPROLOL SUCCINATE 25 MG TAB.ER.24H PO SCH (08:37)
[2018-04-09 19:56] VITALS: BP 93/63
[2018-04-09] MEDS: ATORVASTATIN 20 MG TABLET PO SCH (19:57)
[2018-04-09] MEDS: GABAPENTIN 300 MG CAPSULE PO PRN (20:01)
[2018-04-10] MEDS: METOPROLOL SUCCINATE 25 MG TAB.ER.24H PO SCH (06:59)
[2018-04-10 07:25] VITALS: BP 115/64
[2018-04-10] MEDS: ASPIRIN 81 MG TABLET EC PO SCH (07:59)
[2018-04-10] MEDS: DULOXETINE 20 MG CAPSULE.DR PO SCH ×2 (07:59→21:29)
[2018-04-10] MEDS: AZITHROMYCIN 500 MG TABLET PO SCH (07:59)
[2018-04-10] MEDS: FERROUS GLUCONATE 324 MG TABLET PO SCH ×2 (07:59→17:35)
[2018-04-10] MEDS: FOLIC ACID 1 MG TABLET PO SCH (07:59)
[2018-04-10] MEDS: GUAIFENESIN/DM 200-20MG, 10ML UDC PO PRN (08:58)
[2018-04-10 19:25] VITALS: BP 137/65
[2018-04-10] MEDS: ATORVASTATIN 20 MG TABLET PO SCH (21:29)
[2018-04-11 07:20] VITALS: BP 92/54
[2018-04-11] MEDS: FOLIC ACID 1 MG TABLET PO SCH (08:31)
[2018-04-11] MEDS: ASPIRIN 81 MG TABLET EC PO SCH (08:32)
[2018-04-11] MEDS: FERROUS GLUCONATE 324 MG TABLET PO SCH ×2 (08:32→17:27)
[2018-04-11] MEDS: AZITHROMYCIN 500 MG TABLET PO SCH (08:32)
[2018-04-11] MEDS: DULOXETINE 20 MG CAPSULE.DR PO SCH ×2 (08:32→20:50)
[2018-04-11] MEDS: DOCUSATE 100 MG CAPSULE PO PRN (13:17)
[2018-04-11] MEDS: GABAPENTIN 300 MG CAPSULE PO PRN (17:27)
[2018-04-11] MEDS: ACETAMINOPHEN 325 MG TABLET PO PRN ×2 (17:27→20:50)
[2018-04-11 19:30] VITALS: BP 143/49
[2018-04-11] MEDS: GUAIFENESIN/DM 200-20MG, 10ML UDC PO PRN (19:33)
[2018-04-11] MEDS: ATORVASTATIN 20 MG TABLET PO SCH (20:50)
[2018-04-12] MEDS: FOLIC ACID 1 MG TABLET PO SCH (08:02)
[2018-04-12] MEDS: FERROUS GLUCONATE 324 MG TABLET PO SCH ×3 (08:02→16:56)
[2018-04-12] MEDS: AZITHROMYCIN 500 MG TABLET PO SCH (08:02)
[2018-04-12] MEDS: DULOXETINE 20 MG CAPSULE.DR PO SCH ×2 (08:02→20:39)
[2018-04-12] MEDS: ASPIRIN 81 MG TABLET EC PO SCH (08:03)
[2018-04-12 08:08] VITALS: BP 105/55
[2018-04-12 20:06] VITALS: BP 137/61
[2018-04-12] MEDS: GABAPENTIN 300 MG CAPSULE PO PRN (20:39)
[2018-04-12] MEDS: ATORVASTATIN 20 MG TABLET PO SCH (20:39)
[2018-04-13] MEDS ORDERED: DIPHENHYDRAMINE 50 MG CAPSULE ONE (00:48)
[2018-04-13] MEDS: DIPHENHYDRAMINE 25 MG CAPSULE PO PRN ×2 (00:54→23:21)
[2018-04-13 07:49] VITALS: BP 127/70
[2018-04-13] MEDS: FOLIC ACID 1 MG TABLET PO SCH (08:27)
[2018-04-13] MEDS: FERROUS GLUCONATE 324 MG TABLET PO SCH ×3 (08:27→17:00)
[2018-04-13] MEDS: DULOXETINE 20 MG CAPSULE.DR PO SCH ×2 (08:28→20:34)
[2018-04-13] MEDS: ASPIRIN 81 MG TABLET EC PO SCH (08:28)
[2018-04-13 19:28] VITALS: BP 134/68
[2018-04-13] MEDS: GABAPENTIN 300 MG CAPSULE PO PRN (20:34)
[2018-04-13] MEDS: ATORVASTATIN 20 MG TABLET PO SCH (20:34)
[2018-04-14] MEDS: ASPIRIN 81 MG TABLET EC PO SCH (06:14)
[2018-04-14] MEDS: FERROUS GLUCONATE 324 MG TABLET PO SCH ×2 (07:46→20:35)
[2018-04-14] MEDS: DULOXETINE 20 MG CAPSULE.DR PO SCH ×2 (07:46→20:35)
[2018-04-14] MEDS: FOLIC ACID 1 MG TABLET PO SCH (07:46)
[2018-04-14 08:07] VITALS: BP 138/60
[2018-04-14] MEDS: DOCUSATE 100 MG CAPSULE PO PRN (16:28)
[2018-04-14 19:29] VITALS: BP 124/65
[2018-04-14] MEDS: DIPHENHYDRAMINE 25 MG CAPSULE PO PRN (20:34)
[2018-04-14] MEDS: ATORVASTATIN 20 MG TABLET PO SCH (20:35)
[2018-04-15] MEDS ORDERED: TRAZODONE 50MG TABLET PO ONE (02:00)
[2018-04-15] MEDS ORDERED: TRAZODONE 50MG TABLET PO PRN (07:00)
[2018-04-15 07:40] VITALS: BP 102/62
[2018-04-15] MEDS: FOLIC ACID 1 MG TABLET PO SCH (08:19)
[2018-04-15] MEDS: FERROUS GLUCONATE 324 MG TABLET PO SCH ×2 (08:19→17:00)
[2018-04-15] MEDS: DULOXETINE 20 MG CAPSULE.DR PO SCH ×2 (08:19→20:35)
[2018-04-15] MEDS: ASPIRIN 81 MG TABLET EC PO SCH (08:19)
[2018-04-15] MEDS: GABAPENTIN 300 MG CAPSULE PO PRN (08:30)
[2018-04-15] MEDS: GABAPENTIN 300 MG CAPSULE PO SCH ×2 (16:08→20:35)
[2018-04-15 19:53] VITALS: BP 116/58
[2018-04-15] MEDS: ATORVASTATIN 20 MG TABLET PO SCH (20:35)
[2018-04-16] MEDS: FERROUS GLUCONATE 324 MG TABLET PO SCH (07:58)
[2018-04-16] MEDS: GABAPENTIN 300 MG CAPSULE PO SCH (07:59)
[2018-04-16] MEDS: FOLIC ACID 1 MG TABLET PO SCH (07:59)
[2018-04-16] MEDS: DULOXETINE 20 MG CAPSULE.DR PO SCH (07:59)
[2018-04-16] MEDS: ASPIRIN 81 MG TABLET EC PO SCH (07:59)
[2018-04-16 08:05] VITALS: BP 117/65
== END 2018-04-16 12:40 ==
LOC: ED 18:25 → EDIP 20:18 → 2N 04-04 20:44
PROVIDERS: ADMIT Internal Medicine; ATTEND Family Medicine
DX: R45.851 Suicidal ideations (principal); F32.9 Major depressive disorder, single episode, unspecified; J06.9 Acute upper respiratory infection, unspecified; I25.10 Atherosclerotic heart disease of native coronary artery without angina pectoris; I11.0 Hypertensive heart disease with heart failure; I50.32 Chronic diastolic (congestive) heart failure; E78.5 Hyperlipidemia, unspecified; E11.40 Type 2 diabetes mellitus with diabetic neuropathy, unspecified; D50.9 Iron deficiency anemia, unspecified; I48.91 Unspecified atrial fibrillation; J44.9 Chronic obstructive pulmonary disease, unspecified; I25.2 Old myocardial infarction; G47.00 Insomnia, unspecified; F17.200 Nicotine dependence, unspecified, uncomplicated; Z95.5 Presence of coronary angioplasty implant and graft; Z91.19 Patient's noncompliance with other medical treatment and regimen; Z86.73 Personal history of transient ischemic attack (TIA), and cerebral infarction without residual deficits; Z59.0 Homelessness; Z91.5 Personal history of self-harm
CPT/HCPCS: 36415; 80053; 80307; 80329; 85025; 99284; G0378; Q0163; G0480

== ENCOUNTER 2018-08-23 13:24 | Inpatient (IN) | payer MEDICARE, MEDICAID ==
[~2018-08-23] VITALS: Ht 182.9 cm; Wt 89.0 kg
[~2018-08-23 13:24] MED LIST changes: +ATOR-2 PO; +FERR324T5 PO; +FLUO20TA25 PO; +FOLI0.8T2 PO; +GABA600T7 PO; +LORA2TAB PO
[2018-08-23] MEDS ORDERED: SODIUM CHLORIDE FLUSH 10ML SYR IVF ONE (14:00)
[2018-08-23 14:16] LABS: BASOPHILS # (AUTO) 0.02 x10^3/uL (0-0.1); BASOPHILS % (AUTO) 0 % (0-1); EOSINOPHILS # (AUTO) 0.46 x10^3/uL (0-0.4); EOSINOPHILS % (AUTO) 8 % (1-7); LYMPHOCYTES # (AUTO) 0.84 x10^3/uL (1-3.4); LYMPHOCYTES % (AUTO) 15 % (22-44); MD NO; MEAN CORPUSCULAR HEMOGLOBIN 26.6 pg (27.5-34.5); MEAN CORPUSCULAR HGB CONC 32.4 g/dL (33.2-36.2); MEAN CORPUSCULAR VOLUME 82.1 fL (81-97); MEAN PLATELET VOLUME 8.6 fL (7.4-10.4); MONOCYTES # (AUTO) 0.65 x10^3/uL (0.2-0.8); MONOCYTES % (AUTO) 11 % (2-9); NEUTROPHILS # (AUTO) 3.76 x10^3/uL (1.8-6.8); NEUTROPHILS % (AUTO) 66 % (42-75); PLATELET COUNT 200 x10^3/uL (130-400); RED BLOOD COUNT 4.89 x10^6/uL (4.38-5.82); RED CELL DISTRIBUTION WIDTH 15.6 % (9.4-14.8)
[2018-08-23 14:22] LABS: INTERNATIONAL NORMALIZED RATIO 1.09 (0.93-1.1); PROTHROMBIN TIME 11.4 Seconds (9.6-11.5)
[2018-08-23 14:25] LABS: ALBUMIN 3.3 g/dL (3.4-5.0); ANION GAP 4 mmol/L (5-15); CALCIUM 8.8 mg/dL (8.5-10.1); CHLORIDE 104 mmol/L (98-107)
[2018-08-23 14:32] LABS: ALANINE AMINOTRANSFERASE 43 U/L (12-78); ALKALINE PHOSPHATASE 220 U/L (45-117); BILIRUBIN,TOTAL 0.5 mg/dL (0.2-1.0); CREATININE 0.97 mg/dL (0.7-1.3); TROPONIN I < 0.015 ng/mL (0.000-0.045)
[2018-08-23] MEDS ORDERED: CYCLOBENZAPRINE 10 MG TABLET PO PRN (16:00)
[2018-08-23] MEDS ORDERED: ACETAMINOPHEN 325 MG TABLET PO PRN (16:00)
[2018-08-23] MEDS ORDERED: DOCUSATE 100 MG CAPSULE PO PRN (16:00)
[2018-08-23] MEDS ORDERED: GUAIFENESIN 100 MG/5 ML, 10ML UDC PO PRN (16:00)
[2018-08-23] MEDS ORDERED: NITROGLYCERIN 0.4 MG BOTTLE (25 TABS) SL PRN (16:00)
[2018-08-23] MEDS ORDERED: GABAPENTIN 400 MG PO SCH (16:00)
[2018-08-23] MEDS: NICOTINE 14MG/24 HR PATCH.TD24 TD SCH (16:00)
[2018-08-23] MEDS ORDERED: ONDANSETRON 2MG/ML, 2ML IVPush PRN (16:00)
[2018-08-23] MEDS ORDERED: hydrALAzine 20 MG/ML, 1ML IVPush PRN (16:00)
[2018-08-23] MEDS ORDERED: NICOTINE 14MG/24 HR PATCH.TD24 ONE (16:19)
[2018-08-23] MEDS ORDERED: GABAPENTIN 400 MG CAPSULE ONE (16:19)
[2018-08-23] MEDS: GABAPENTIN 400 MG CAPSULE PO SCH ×3 (16:23→21:26)
[2018-08-23] MEDS: FOLIC ACID 1 MG TABLET PO SCH (17:17)
--- NOTE | 2018-08-23 17:29 | NUR ---
PT PROVIDED WITH MEAL TRAY
--- NOTE | 2018-08-23 18:31 | NUR ---
TASK RN: REPORT TO DONAVAN MORRIS. ALL QUESTIONS ANSWERED/
--- NOTE | 2018-08-23 18:47 | NUR ---
sw found this rn in the hallway claiming this is a patient of hers and that is on a legal hold. this is first time this rn aware. charge and supervising rn made aware at this time
--- NOTE | 2018-08-23 18:48 | NUR ---
pt ate approx 50% of dinner. now on hospital bed. denies needs at this time
--- NOTE | 2018-08-23 19:03 | NUR ---
report received from jenny monaco.
--- NOTE | 2018-08-23 19:20 | NUR ---
pt moved to tr1
--- NOTE | 2018-08-23 19:54 | NUR ---
report given to bola monaco. all questions answered.
[2018-08-23 20:22] VITALS: BP 122/67
[2018-08-23 20:23] LABS: TROPONIN I < 0.015 ng/mL (0.000-0.045)
[2018-08-23] MEDS ORDERED: IPRATROPIUM 0.5 MG/2.5 ML INHA ONE (21:22)
[2018-08-23] MEDS: DONEPEZIL 5 MG TABLET PO SCH (21:25)
[2018-08-23] MEDS: ATORVASTATIN 20 MG TABLET PO SCH (21:26)
[2018-08-23] MEDS: MELATONIN 3 MG TABLET PO SCH (21:26)
[2018-08-23] MEDS: IPRATROPIUM 0.5 MG/2.5 ML INHA NPPB SCH (21:45)
[2018-08-23] MEDS ORDERED: ALBUTEROL SULFATE 2.5 MG/3 ML NPPB PRN (22:00)
[2018-08-24 08:00] VITALS: BP 136/78
[2018-08-24 08:32] LABS: BASOPHILS # (AUTO) 0.02 x10^3/uL (0-0.1); BASOPHILS % (AUTO) 0 % (0-1); EOSINOPHILS # (AUTO) 0.54 x10^3/uL (0-0.4); EOSINOPHILS % (AUTO) 9 % (1-7); LYMPHOCYTES # (AUTO) 0.96 x10^3/uL (1-3.4); LYMPHOCYTES % (AUTO) 16 % (22-44); MD NO; MEAN CORPUSCULAR HGB CONC 31.8 g/dL (33.2-36.2); MEAN CORPUSCULAR VOLUME 81.7 fL (81-97); MEAN PLATELET VOLUME 8.2 fL (7.4-10.4); MONOCYTES # (AUTO) 0.67 x10^3/uL (0.2-0.8); MONOCYTES % (AUTO) 11 % (2-9); NEUTROPHILS # (AUTO) 3.81 x10^3/uL (1.8-6.8); NEUTROPHILS % (AUTO) 64 % (42-75); PLATELET COUNT 200 x10^3/uL (130-400); RED BLOOD COUNT 5.03 x10^6/uL (4.38-5.82); RED CELL DISTRIBUTION WIDTH 15.7 % (9.4-14.8)
[2018-08-24 08:40] LABS: ANION GAP 4 mmol/L (5-15); CALCIUM 9.2 mg/dL (8.5-10.1); CHLORIDE 105 mmol/L (98-107); CHOLESTEROL, TOTAL 101 mg/dL (140-239); CREATININE 0.98 mg/dL (0.7-1.3); TRIGLYCERIDES 62 mg/dL (50-200); VLDL CHOLESTEROL 12 mg/dL (0-25)
[2018-08-24 08:43] LABS: CHOL/HDL RATIO 1.9; HDL CHOL % 53 % (26-37); HDL CHOLESTEROL (DIRECT) 54 mg/dL (40-60); LDL CHOLESTEROL,CALCULATED 35 mg/dL (54-169); LDL/HDL RATIO 0.6 (0.5-3.0)
[2018-08-24] MEDS: FOLIC ACID 1 MG TABLET PO SCH ×2 (09:28→10:10)
[2018-08-24] MEDS: GABAPENTIN 400 MG CAPSULE PO SCH ×6 (09:28→21:42)
[2018-08-24 09:35] LABS: TROPONIN I < 0.015 ng/mL (0.000-0.045)
[2018-08-24] MEDS: IPRATROPIUM 0.5 MG/2.5 ML INHA NPPB SCH ×3 (09:35→20:45)
[2018-08-24] MEDS: ASPIRIN 81 MG TABLET EC PO SCH (10:09)
[2018-08-24] MEDS: CYANOCOBALAMIN 1,000 MCG TABLET PO SCH (10:10)
[2018-08-24] MEDS: CITALOPRAM 20 MG TABLET PO SCH (10:10)
[2018-08-24] MEDS: FERROUS SULFATE 325 MG TABLET PO SCH ×2 (10:10→21:42)
[2018-08-24] MEDS: LORATADINE 10 MG TABLET PO SCH (10:10)
[2018-08-24] MEDS ORDERED: MELA3TAB2 PO (11:13)
[2018-08-24] MEDS ORDERED: LORA-247 PO (11:13)
[2018-08-24] MEDS ORDERED: CYAN10005 PO (11:13)
[2018-08-24] MEDS ORDERED: CITA20TA9 PO (11:13)
[2018-08-24] MEDS ORDERED: DONE5TAB52 PO (11:13)
[2018-08-24] MEDS ORDERED: METO25TA91 PO ×2 (11:17)
[2018-08-24 14:00] VITALS: BP 119/77
[2018-08-24] MEDS: NICOTINE 14MG/24 HR PATCH.TD24 TD SCH (16:00)
[2018-08-24 21:38] VITALS: BP 123/52
[2018-08-24] MEDS: DONEPEZIL 5 MG TABLET PO SCH (21:42)
[2018-08-24] MEDS: ATORVASTATIN 20 MG TABLET PO SCH (21:42)
[2018-08-24] MEDS: MELATONIN 3 MG TABLET PO SCH (21:42)
[2018-08-25 06:43] VITALS: BP 127/67
[2018-08-25] MEDS: IPRATROPIUM 0.5 MG/2.5 ML INHA NPPB SCH ×3 (07:45→19:19)
[2018-08-25] MEDS: ASPIRIN 81 MG TABLET EC PO SCH (08:03)
[2018-08-25] MEDS: FOLIC ACID 1 MG TABLET PO SCH ×2 (08:03)
[2018-08-25] MEDS: LORATADINE 10 MG TABLET PO SCH (08:03)
[2018-08-25] MEDS: CYANOCOBALAMIN 1,000 MCG TABLET PO SCH (08:03)
[2018-08-25] MEDS: GABAPENTIN 400 MG CAPSULE PO SCH ×4 (08:03→20:35)
[2018-08-25] MEDS: FERROUS SULFATE 325 MG TABLET PO SCH ×2 (08:03→20:36)
[2018-08-25] MEDS: CITALOPRAM 20 MG TABLET PO SCH (08:03)
[2018-08-25 13:07] VITALS: BP 131/66
[2018-08-25] MEDS: NICOTINE 14MG/24 HR PATCH.TD24 TD SCH (16:00)
[2018-08-25 19:11] VITALS: BP 137/63
[2018-08-25] MEDS: DONEPEZIL 5 MG TABLET PO SCH (20:35)
[2018-08-25] MEDS: ATORVASTATIN 20 MG TABLET PO SCH (20:35)
[2018-08-25] MEDS: MELATONIN 3 MG TABLET PO SCH (20:36)
[2018-08-26 03:54] VITALS: BP 112/63
[2018-08-26 06:45] VITALS: BP 109/61
[2018-08-26] MEDS: CITALOPRAM 20 MG TABLET PO SCH (08:26)
[2018-08-26] MEDS: CYANOCOBALAMIN 1,000 MCG TABLET PO SCH (08:26)
[2018-08-26] MEDS: LORATADINE 10 MG TABLET PO SCH (08:26)
[2018-08-26] MEDS: GABAPENTIN 400 MG CAPSULE PO SCH (08:26)
[2018-08-26] MEDS: FERROUS SULFATE 325 MG TABLET PO SCH (08:26)
[2018-08-26] MEDS: ASPIRIN 81 MG TABLET EC PO SCH (08:26)
[2018-08-26] MEDS: FOLIC ACID 1 MG TABLET PO SCH (08:26)
[2018-08-26] MEDS ORDERED: CITA20TA9 PO (10:46)
[2018-08-26] MEDS ORDERED: ATOR20TA PO (10:46)
[2018-08-26] MEDS ORDERED: METO25TA91 PO (10:46)
[2018-08-26] MEDS ORDERED: ASPI-515 PO (10:46)
[2018-08-26] MEDS ORDERED: GABA100C PO (10:46)
[2018-08-26] MEDS ORDERED: LORA10TA62 PO (10:46)
[2018-08-26] MEDS ORDERED: DONE5TAB7 PO (10:46)
[2018-08-26] MEDS ORDERED: FOLI-17 PO (10:46)
[2018-08-26] MEDS ORDERED: MELA3TAB2 PO (10:46)
[2018-08-26] MEDS ORDERED: CYAN10005 PO (10:46)
[2018-08-26] MEDS ORDERED: FERR325T18 PO (10:46)
== END 2018-08-26 10:26 | disposition home or self-care (01) | DRG 303 ==
LOC: ED 13:31 → EDIP 15:28 → 5SO 20:13
PROVIDERS: ADMIT Internal Medicine; ATTEND Internal Medicine
DX: I25.10 Atherosclerotic heart disease of native coronary artery without angina pectoris (principal); R45.851 Suicidal ideations; I50.32 Chronic diastolic (congestive) heart failure; I11.0 Hypertensive heart disease with heart failure; F29 Unspecified psychosis not due to a substance or known physiological condition; D64.9 Anemia, unspecified; E78.5 Hyperlipidemia, unspecified; F17.210 Nicotine dependence, cigarettes, uncomplicated; F32.9 Major depressive disorder, single episode, unspecified; E11.40 Type 2 diabetes mellitus with diabetic neuropathy, unspecified; G43.909 Migraine, unspecified, not intractable, without status migrainosus; I48.91 Unspecified atrial fibrillation; J44.9 Chronic obstructive pulmonary disease, unspecified; Z86.73 Personal history of transient ischemic attack (TIA), and cerebral infarction without residual deficits; Z91.19 Patient's noncompliance with other medical treatment and regimen; I25.2 Old myocardial infarction; Z95.5 Presence of coronary angioplasty implant and graft; Z79.899 Other long term (current) drug therapy; Z88.0 Allergy status to penicillin; Z88.8 Allergy status to other drugs, medicaments and biological substances; Z88.6 Allergy status to analgesic agent; Z87.81 Personal history of (healed) traumatic fracture
CPT/HCPCS: 36415; 71045; 80048; 80053; 80061; 83735; 83880; 84443; 84484; 85025; 85610; 93306; 94640; 99285; G0378; J7644

== ENCOUNTER 2018-09-03 17:00 | Inpatient (IN) | payer MEDICARE, MEDICAID ==
[~2018-09-03] VITALS: Ht 175.3 cm; Wt 90.4 kg
[~2018-09-03 17:00] MED LIST changes: +ATOR20TA PO; +CITA20TA9 PO; +CYAN10005 PO; +DONE5TAB52 PO; +DONE5TAB7 PO; +FERR325T18 PO; +GABA100C PO; +LORA-247 PO; +LORA10TA62 PO; +MELA3TAB2 PO
--- NOTE | 2018-09-03 18:09 | NUR ---
FROM LOBBY TO ROOM AT THIS TIME
--- NOTE | 2018-09-03 18:44 | NUR ---
ERP IN TO SEE PT. LABS DRAWN. US ORDERED. PT AWARE OF NEED FOR UA, STATES HE CAN'T GO AT THIS TIME. URINAL PROVIDED, PT TO PUT AIRFIELD MANAGER LIGHT WHEN ABLE TO OBTAIN. CALL LIGHT WITHIN REACH. PULSE OX IN PLACE, GOWN PROVIDED.
--- NOTE | 2018-09-03 18:57 | NUR ---
PT REFUSED TO UNDERSS FOR US EXAM - US DELAY
[2018-09-03 19:08] LABS: BASOPHILS % (AUTO) 0 % (0-1); EOSINOPHILS # (AUTO) 0.08 x10^3/uL (0-0.4); EOSINOPHILS % (AUTO) 1 % (1-7); LYMPHOCYTES # (AUTO) 0.73 x10^3/uL (1-3.4); LYMPHOCYTES % (AUTO) 8 % (22-44); MD NO; MEAN CORPUSCULAR HEMOGLOBIN 26.7 pg (27.5-34.5); MEAN CORPUSCULAR HGB CONC 33.2 g/dL (33.2-36.2); MEAN CORPUSCULAR VOLUME 80.5 fL (81-97); MEAN PLATELET VOLUME 8.5 fL (7.4-10.4); MONOCYTES # (AUTO) 0.88 x10^3/uL (0.2-0.8); MONOCYTES % (AUTO) 10 % (2-9); NEUTROPHILS # (AUTO) 7.13 x10^3/uL (1.8-6.8); NEUTROPHILS % (AUTO) 81 % (42-75); PLATELET COUNT 199 x10^3/uL (130-400); RED BLOOD COUNT 4.61 x10^6/uL (4.38-5.82); RED CELL DISTRIBUTION WIDTH 15.3 % (9.4-14.8)
[2018-09-03 19:10] LABS: ALBUMIN 3.1 g/dL (3.4-5.0); ANION GAP 8 mmol/L (5-15); CALCIUM 8.8 mg/dL (8.5-10.1); CHLORIDE 102 mmol/L (98-107); CREATININE 1.17 mg/dL (0.7-1.3)
--- NOTE | 2018-09-03 19:11 | NUR ---
PT BACK FROM US, AWAITING RESULTS.
[2018-09-03] MEDS ORDERED: VANCOMYCIN PER PHARMACY MC PRN ×2 (20:00→20:30)
[2018-09-03] MEDS ORDERED: SODIUM CHLORIDE FLUSH 10ML SYR IVF PRN (20:00)
[2018-09-03] MEDS ORDERED: CEFTRIAXONE PMX 1GM/50ML 50 ML IVPB ONE (20:00)
[2018-09-03] MEDS ORDERED: CEFTRIAXONE PMX 1GM/50ML 50 ML ONE (20:08)
--- NOTE | 2018-09-03 20:16 | NUR ---
URINE COLLECTED/SENT TO LAB. IV PLACED, ANTIBIOTICS INFUSING PER ERP ORDER.
[2018-09-03 20:43] LABS: CULTURE INDICATED? YES; MICROSCOPIC INDICATED
[2018-09-03] MEDS ORDERED: VANCOMYCIN 1,600 MG in SODIUM CHLORIDE 0.9% 250 ML IV ONE (21:00)
[2018-09-03] MEDS ORDERED: PHARMACOKINETIC MONITORING MC PRN (21:00)
--- NOTE | 2018-09-03 21:12 | NUR ---
REPORT TO [facility]OGEL[facility] GO. PT READY FOR TRANSPORT TO FLOOR.
--- NOTE | 2018-09-03 21:33 | NUR ---
LATE NOTE: PT STATES HE HAS BEEN HOMELESS FOR "AWHILE", TAKING NONE OF PRESCRIBED MEDS BECAUSE "I FORGET TO GET THEM AND THEN FORGET TO TAKE THEM SO I JUST DON'T ANYMORE".
[2018-09-03] MEDS ORDERED: ONDANSETRON 2MG/ML, 2ML IVPush PRN (22:00)
[2018-09-03] MEDS ORDERED: DOCUSATE 100 MG CAPSULE PO PRN (22:00)
[2018-09-03] MEDS ORDERED: BISACODYL 10 MG SUPP PR PRN (22:00)
[2018-09-03] MEDS ORDERED: ONDANSETRON ODT 4 MG PO PRN (22:00)
[2018-09-03] MEDS ORDERED: POLYETHYLENE GLYCOL 17 GM PACKET PO PRN (22:00)
[2018-09-03] MEDS ORDERED: PROMETHAZINE 25 MG/ML, 1ML IM PRN (22:00)
[2018-09-03] MEDS ORDERED: morphine SULFATE 10 MG/ML, 1ML IVPush PRN (22:00)
[2018-09-03] MEDS ORDERED: hydrALAzine 20 MG/ML, 1ML IVPush PRN (22:00)
[2018-09-03] MEDS ORDERED: ACETAMINOPHEN 325 MG TABLET PO PRN (22:00)
[2018-09-03] MEDS ORDERED: GABAPENTIN 300 MG CAPSULE PO PRN (22:00)
[2018-09-03] MEDS ORDERED: ENOXAPARIN 40 MG/0.4 ML SQ SCH (22:30)
[2018-09-03] MEDS: OXYcodone/APAP 5/325MG TABLET PO PRN (22:59)
[2018-09-03] MEDS: ACYCLOVIR 400 MG TABLET PO SCH (22:59)
[2018-09-03] MEDS: SODIUM CHLORIDE 0.9% 1,000 ML IV SCH (22:59)
[2018-09-03] MEDS: ERTAPENEM 1 GM in SODIUM CHLORIDE 0.9% 50 ML IV SCH (23:38)
[2018-09-03] MEDS: NYSTATIN TOPICAL POWDER 15GM TP SCH (23:38)
[2018-09-04 02:01] VITALS: BP 119/68
[2018-09-04] MEDS: OXYcodone/APAP 5/325MG TABLET PO PRN ×3 (04:03→20:35)
[2018-09-04] MEDS: METOPROLOL SUCCINATE 25 MG TAB.ER.24H PO SCH (05:23)
[2018-09-04 05:56] LABS: BASOPHILS # (AUTO) 0.03 x10^3/uL (0-0.1); BASOPHILS % (AUTO) 0 % (0-1); EOSINOPHILS # (AUTO) 0.27 x10^3/uL (0-0.4); EOSINOPHILS % (AUTO) 3 % (1-7); LYMPHOCYTES # (AUTO) 1.07 x10^3/uL (1-3.4); LYMPHOCYTES % (AUTO) 13 % (22-44); MD NO; MEAN CORPUSCULAR HEMOGLOBIN 26.4 pg (27.5-34.5); MEAN CORPUSCULAR HGB CONC 32.6 g/dL (33.2-36.2); MEAN CORPUSCULAR VOLUME 80.9 fL (81-97); MEAN PLATELET VOLUME 8.2 fL (7.4-10.4); MONOCYTES # (AUTO) 0.96 x10^3/uL (0.2-0.8); MONOCYTES % (AUTO) 12 % (2-9); NEUTROPHILS # (AUTO) 5.75 x10^3/uL (1.8-6.8); NEUTROPHILS % (AUTO) 71 % (42-75); PLATELET COUNT 196 x10^3/uL (130-400); RED BLOOD COUNT 4.85 x10^6/uL (4.38-5.82)
[2018-09-04 06:06] LABS: ALANINE AMINOTRANSFERASE 24 U/L (12-78); ANION GAP 5 mmol/L (5-15); CALCIUM 8.9 mg/dL (8.5-10.1); CHLORIDE 106 mmol/L (98-107); CREATININE 0.94 mg/dL (0.7-1.3)
[2018-09-04 06:09] LABS: ALKALINE PHOSPHATASE 166 U/L (45-117); BILIRUBIN,TOTAL 0.4 mg/dL (0.2-1.0); CHOL/HDL RATIO 2.7; CHOLESTEROL, TOTAL 122 mg/dL (140-239); HDL CHOL % 38 % (26-37); HDL CHOLESTEROL (DIRECT) 46 mg/dL (40-60); LDL CHOLESTEROL,CALCULATED 61 mg/dL (54-169); LDL/HDL RATIO 1.3 (0.5-3.0); TOTAL PROTEIN 7.7 g/dL (6.4-8.2); TRIGLYCERIDES 73 mg/dL (50-200); VLDL CHOLESTEROL 15 mg/dL (0-25)
[2018-09-04] MEDS: ACYCLOVIR 400 MG TABLET PO SCH ×3 (08:51→20:31)
[2018-09-04] MEDS: FOLIC ACID 1 MG TABLET PO SCH (08:51)
[2018-09-04] MEDS: LORATADINE 10 MG TABLET PO SCH (08:51)
[2018-09-04] MEDS: CYANOCOBALAMIN 1,000 MCG TABLET PO SCH (08:51)
[2018-09-04] MEDS: CITALOPRAM 20 MG TABLET PO SCH (08:51)
[2018-09-04] MEDS: NYSTATIN TOPICAL POWDER 15GM TP SCH ×3 (08:51→20:31)
[2018-09-04] MEDS: FERROUS SULFATE 325 MG TABLET PO SCH ×2 (08:51→17:53)
[2018-09-04] MEDS: ASPIRIN 81 MG TABLET CHEW PO SCH (08:52)
[2018-09-04 08:53] VITALS: BP 115/59
[2018-09-04] MEDS: SODIUM CHLORIDE 0.9% 1,000 ML IV SCH (13:00)
[2018-09-04 19:11] VITALS: BP 125/66
[2018-09-04] MEDS: VANCOMYCIN 1,600 MG in SODIUM CHLORIDE 0.9% 250 ML IV SCH (20:30)
[2018-09-04] MEDS: ATORVASTATIN 20 MG TABLET PO SCH (20:31)
[2018-09-04] MEDS: DONEPEZIL 5 MG TABLET PO SCH (20:31)
[2018-09-04] MEDS ORDERED: MELATONIN 3 MG TABLET PO PRN (21:00)
[2018-09-04] MEDS: ERTAPENEM 1 GM in SODIUM CHLORIDE 0.9% 50 ML IV SCH (23:18)
[2018-09-04] MEDS ORDERED: GABAPENTIN 400 MG CAPSULE PO PRN (23:30)
[2018-09-05 00:49] VITALS: BP 134/68
[2018-09-05] MEDS: SODIUM CHLORIDE 0.9% 1,000 ML IV SCH ×2 (01:56→14:00)
[2018-09-05] MEDS: METOPROLOL SUCCINATE 25 MG TAB.ER.24H PO SCH (06:01)
[2018-09-05] MEDS: LORATADINE 10 MG TABLET PO SCH (08:02)
[2018-09-05] MEDS: FOLIC ACID 1 MG TABLET PO SCH (08:03)
[2018-09-05] MEDS: OXYcodone/APAP 5/325MG TABLET PO PRN ×3 (08:03→21:08)
[2018-09-05] MEDS: CITALOPRAM 20 MG TABLET PO SCH (08:04)
[2018-09-05] MEDS: CYANOCOBALAMIN 1,000 MCG TABLET PO SCH (08:04)
[2018-09-05] MEDS: ACYCLOVIR 400 MG TABLET PO SCH ×3 (08:04→21:08)
[2018-09-05] MEDS: FERROUS SULFATE 325 MG TABLET PO SCH ×2 (08:04→17:16)
[2018-09-05] MEDS: ASPIRIN 81 MG TABLET CHEW PO SCH (08:04)
[2018-09-05 08:20] VITALS: BP 121/65
[2018-09-05 08:40] LABS: ALANINE AMINOTRANSFERASE 23 U/L (12-78); ALBUMIN 2.7 g/dL (3.4-5.0); ANION GAP 6 mmol/L (5-15); CALCIUM 8.7 mg/dL (8.5-10.1); CHLORIDE 106 mmol/L (98-107)
[2018-09-05 08:43] LABS: ALKALINE PHOSPHATASE 152 U/L (45-117); BASOPHILS # (AUTO) 0.02 x10^3/uL (0-0.1); BASOPHILS % (AUTO) 0 % (0-1); BILIRUBIN,TOTAL 0.4 mg/dL (0.2-1.0); CREATININE 0.79 mg/dL (0.7-1.3); EOSINOPHILS % (AUTO) 5 % (1-7); LYMPHOCYTES # (AUTO) 0.59 x10^3/uL (1-3.4); LYMPHOCYTES % (AUTO) 8 % (22-44); MD NO; MEAN CORPUSCULAR HEMOGLOBIN 26.2 pg (27.5-34.5); MEAN CORPUSCULAR HGB CONC 32.3 g/dL (33.2-36.2); MEAN CORPUSCULAR VOLUME 81.1 fL (81-97); MEAN PLATELET VOLUME 8.4 fL (7.4-10.4); MONOCYTES # (AUTO) 0.75 x10^3/uL (0.2-0.8); MONOCYTES % (AUTO) 10 % (2-9); NEUTROPHILS # (AUTO) 5.99 x10^3/uL (1.8-6.8); NEUTROPHILS % (AUTO) 77 % (42-75); PLATELET COUNT 213 x10^3/uL (130-400); RED BLOOD COUNT 4.68 x10^6/uL (4.38-5.82); RED CELL DISTRIBUTION WIDTH 15.1 % (9.4-14.8); TOTAL PROTEIN 7.2 g/dL (6.4-8.2)
[2018-09-05] MEDS: NYSTATIN TOPICAL POWDER 15GM TP SCH ×3 (11:29→21:08)
[2018-09-05 14:11] VITALS: BP 126/66
[2018-09-05] MEDS: VANCOMYCIN 1,600 MG in SODIUM CHLORIDE 0.9% 250 ML IV SCH (20:08)
[2018-09-05] MEDS: DONEPEZIL 5 MG TABLET PO SCH (21:08)
[2018-09-05] MEDS: ATORVASTATIN 20 MG TABLET PO SCH (21:08)
[2018-09-05] MEDS: ERTAPENEM 1 GM in SODIUM CHLORIDE 0.9% 50 ML IV SCH (22:58)
[2018-09-06] MEDS: SODIUM CHLORIDE 0.9% 1,000 ML IV SCH (02:45)
[2018-09-06 06:02] VITALS: BP 137/67
[2018-09-06] MEDS: METOPROLOL SUCCINATE 25 MG TAB.ER.24H PO SCH (06:03)
[2018-09-06] MEDS: OXYcodone/APAP 5/325MG TABLET PO PRN (06:04)
[2018-09-06] MEDS: CYANOCOBALAMIN 1,000 MCG TABLET PO SCH (08:56)
[2018-09-06] MEDS: ACYCLOVIR 400 MG TABLET PO SCH (08:56)
[2018-09-06] MEDS: CITALOPRAM 20 MG TABLET PO SCH (08:56)
[2018-09-06] MEDS: ASPIRIN 81 MG TABLET CHEW PO SCH (08:56)
[2018-09-06] MEDS: FERROUS SULFATE 325 MG TABLET PO SCH (08:56)
[2018-09-06] MEDS: LORATADINE 10 MG TABLET PO SCH (08:56)
[2018-09-06] MEDS: FOLIC ACID 1 MG TABLET PO SCH (08:56)
[2018-09-06] MEDS: NYSTATIN TOPICAL POWDER 15GM TP SCH (09:00)
== END 2018-09-06 11:30 | disposition left against medical advice (07) | DRG 872 ==
LOC: ED 19:47 → EDIP 19:55 → 3NE 22:00
PROVIDERS: ADMIT Internal Medicine; ATTEND Internal Medicine
DX: A41.9 Sepsis, unspecified organism (principal); R45.851 Suicidal ideations; E44.0 Moderate protein-calorie malnutrition; I50.32 Chronic diastolic (congestive) heart failure; N45.1 Epididymitis; E78.5 Hyperlipidemia, unspecified; J44.9 Chronic obstructive pulmonary disease, unspecified; I25.10 Atherosclerotic heart disease of native coronary artery without angina pectoris; I11.0 Hypertensive heart disease with heart failure; F17.210 Nicotine dependence, cigarettes, uncomplicated; F29 Unspecified psychosis not due to a substance or known physiological condition; E11.9 Type 2 diabetes mellitus without complications; D53.9 Nutritional anemia, unspecified; I25.2 Old myocardial infarction; I35.8 Other nonrheumatic aortic valve disorders; Z53.21 Procedure and treatment not carried out due to patient leaving prior to being seen by health care provider; I48.91 Unspecified atrial fibrillation; Z89.422 Acquired absence of other left toe(s); Z95.5 Presence of coronary angioplasty implant and graft; Z91.19 Patient's noncompliance with other medical treatment and regimen; Z86.73 Personal history of transient ischemic attack (TIA), and cerebral infarction without residual deficits; Z59.0 Homelessness; Z89.421 Acquired absence of other right toe(s); Z88.0 Allergy status to penicillin; Z88.8 Allergy status to other drugs, medicaments and biological substances; Z91.018 Allergy to other foods; Z68.29 Body mass index [BMI] 29.0-29.9, adult
CPT/HCPCS: 36415; 76870; 80048; 80053; 80061; 81001; 82040; 83735; 85025; 86592; 87070; 87086; 87205; 87255; 96365; 96375; 99285; G0378; J0696; J1335; J3370; J7030; J7050

== ENCOUNTER 2018-09-07 20:02 | Emergency (ER) | payer MEDICARE, MEDICAID ==
[~2018-09-07] VITALS: Ht 182.9 cm; Wt 89.8 kg
[2018-09-07 20:05] VITALS: BP 145/73
--- NOTE | 2018-09-07 20:16 | NUR ---
"I FEEL LIKE DYING, NO SYPMTOMS. I JUST FEEL I SHOULDN'T BE HERE ANYMORE, MY EVERYONE ". STATED PREVIOUS [facility]
[2018-09-07 21:24] LABS: BASOPHILS # (AUTO) 0.05 x10^3/uL (0-0.1); BASOPHILS % (AUTO) 1 % (0-1); EOSINOPHILS % (AUTO) 3 % (1-7); LYMPHOCYTES # (AUTO) 0.88 x10^3/uL (1-3.4); LYMPHOCYTES % (AUTO) 14 % (22-44); MD NO; MEAN CORPUSCULAR HEMOGLOBIN 25.8 pg (27.5-34.5); MEAN CORPUSCULAR HGB CONC 31.1 g/dL (33.2-36.2); MEAN PLATELET VOLUME 7.8 fL (7.4-10.4); MONOCYTES # (AUTO) 0.55 x10^3/uL (0.2-0.8); MONOCYTES % (AUTO) 9 % (2-9); NEUTROPHILS % (AUTO) 74 % (42-75); PLATELET COUNT 253 x10^3/uL (130-400); RED BLOOD COUNT 4.64 x10^6/uL (4.38-5.82); RED CELL DISTRIBUTION WIDTH 15.2 % (9.4-14.8)
[2018-09-07 21:26] LABS: AMPHETAMINE SCREEN, URINE Negative (Negative); BARBITURATE SCREEN, URINE Negative (Negative); BENZODIAZEPINE SCREEN, URINE Negative (Negative); CANNABINOID SCREEN, URINE Negative (Negative); COCAINE SCREEN, URINE Negative (Negative); METHADONE SCREEN, URINE Negative (Negative); OPIATE SCREEN, URINE Negative (Negative)
[2018-09-07 21:35] LABS: ANION GAP 9 mmol/L (5-15); CALCIUM 8.8 mg/dL (8.5-10.1); CHLORIDE 105 mmol/L (98-107); CREATININE 0.94 mg/dL (0.7-1.3); SALICYLATE LEVEL 1.9 mg/dL (2.8-20.0)
[2018-09-07 21:37] LABS: ACETAMINOPHEN < 2 mcg/mL (10-30)
--- NOTE | 2018-09-07 21:51 | NUR ---
2 BAGS OF BELONGINGS PLACED IN LOCKED LOCKER GARAGE DOORS DOWN, POC DISCUSSED
--- NOTE | 2018-09-07 22:11 | NUR ---
SOC CONTACTED FOR TELEPSYCH CONSULT
--- NOTE | 2018-09-08 00:56 | NUR ---
Patient is resting comfortably in bed.
--- NOTE | 2018-09-08 01:11 | NUR ---
PT RESTING IN BED WITH EYES CLOSED. NO STATED NEEDS AT THIS TIME. WILL CONTINUE TO MONITOR.
--- NOTE | 2018-09-08 02:30 | NUR ---
PT RESTING IN BED WITH EYES CLOSED, RESP EVEN AND NON LABORED. NO STATED NEEDS AT THIS TIME. WILL CONTINUE TO MONITOR.
--- NOTE | 2018-09-08 03:41 | NUR ---
PT RESTING IN BED WITH EYES CLOSED. NO STATED NEEDS AT THIS TIME. WILL CONTINUE TO MONITOR.
--- NOTE | 2018-09-08 04:10 | NUR ---
PT RESTING IN BED WITH EYES CLOSED. NO STATED NEEDS AT THIS TIME. WILL CONTINUE TO MONITOR.
--- NOTE | 2018-09-08 05:42 | NUR ---
REPORT TO SOC. DOC BOT IN ROOM.
--- NOTE | 2018-09-08 06:00 | NUR ---
PT ABLE TO AMBULATE TO BATHROOM WITH WALKER.
--- NOTE | 2018-09-08 06:30 | NUR ---
PT TWO BAGS OF BELONGINGS RETURNED TO HIM. REVIEWED WITH PT TO MAKE HIS APPT SOON POSSIBLE WITH [facility] PER EMS RECOMMENDATIONS. PT VERBALIZED UNDERSTANDING. PT HAS WALKER.
== END 2018-09-08 06:31 | disposition home or self-care (01) ==
LOC: ED 20:58
DX: F32.9 Major depressive disorder, single episode, unspecified (principal); I25.10 Atherosclerotic heart disease of native coronary artery without angina pectoris; I10 Essential (primary) hypertension; E11.9 Type 2 diabetes mellitus without complications; I25.2 Old myocardial infarction; E78.5 Hyperlipidemia, unspecified; I48.91 Unspecified atrial fibrillation; G43.909 Migraine, unspecified, not intractable, without status migrainosus; Z72.9 Problem related to lifestyle, unspecified; Z86.73 Personal history of transient ischemic attack (TIA), and cerebral infarction without residual deficits
CPT/HCPCS: 36415; 80048; 80307; 85025; 99284

== ENCOUNTER 2019-03-06 18:36 | Emergency (ER) | payer MEDICARE, MEDICAID ==
[~2019-03-06] VITALS: Ht 180.3 cm; Wt 93.7 kg
[~2019-03-06 18:36] MED LIST changes: +CYAN-27 PO; -CYAN10005 PO; -MELA3TAB2 PO; +MELA3TAB56 PO
[2019-03-06 18:39] VITALS: BP 134/61
[2019-03-06] MEDS ORDERED: LIDOCAINE-MPF 1%, 5ML INFIL ONE (19:00)
[2019-03-06] MEDS ORDERED: DIPH,PERTUSS(ACELL),TET VAC/PF 0.5 ML IM-VACC ONE ×2 (19:18→19:30)
== END 2019-03-06 19:43 | disposition home or self-care (01) ==
LOC: ED 19:30
DX: M79.641 Pain in right hand (principal); Z72.9 Problem related to lifestyle, unspecified; R23.4 Changes in skin texture; E11.9 Type 2 diabetes mellitus without complications; F17.200 Nicotine dependence, unspecified, uncomplicated
CPT/HCPCS: 90471; 90715; 99283

== ENCOUNTER 2019-07-09 07:23 | Emergency (ER) | payer MEDICARE, MEDICAID ==
[~2019-07-09] VITALS: Ht 175.3 cm; Wt 97.0 kg
--- NOTE | 2019-07-09 07:50 | NUR ---
PT WITH C/O LEROY AREA AND TESTICULAR PAIN. PT WITH CELLULITES T/O LEROY AREA, AND UNDER PANNIS. PT IN WITH POOR HYGIENE LIVES AT THE [facility]. PT IS VERY PLEASANT AND COOPERATIVE. STATES THAT THE REDNESS IN HIS GROIN HAS BEEN ONLY FOR PAST 2 WEEKS BUT HAS GOTTEN "MUCH WORSE IN PAST 2 DAYS"
[2019-07-09] MEDS ORDERED: SODIUM CHLORIDE FLUSH 10ML SYR IVF ONE (08:00)
[2019-07-09] MEDS ORDERED: ONDANSETRON 2MG/ML, 2ML IVPush ONE (08:00)
[2019-07-09] MEDS ORDERED: MORPHINE SULFATE 4 MG/ML, 1ML IVPush PRN (08:00)
--- NOTE | 2019-07-09 08:00 | NUR ---
ER PA AT BEDSIDE, PT ASSESSEMENT REVIEWED, POC DISCUSSED. ORDERS REC'D.
[2019-07-09] MEDS ORDERED: ONDANSETRON 2MG/ML, 2ML ONE (08:31)
[2019-07-09] MEDS ORDERED: MORPHINE SULFATE 4 MG/ML, 1ML ONE (08:31)
[2019-07-09 08:32] LABS: BASOPHILS % (AUTO) 0 % (0-1); EOSINOPHILS # (AUTO) 0.26 x10^3/uL (0-0.4); EOSINOPHILS % (AUTO) 4 % (1-7); LYMPHOCYTES # (AUTO) 0.86 x10^3/uL (1-3.4); LYMPHOCYTES % (AUTO) 12 % (22-44); MD NO; MEAN CORPUSCULAR HEMOGLOBIN 25.6 pg (27.5-34.5); MEAN CORPUSCULAR HGB CONC 32.3 g/dL (33.2-36.2); MEAN CORPUSCULAR VOLUME 79.3 fL (81-97); MEAN PLATELET VOLUME 7.7 fL (7.4-10.4); MONOCYTES # (AUTO) 0.54 x10^3/uL (0.2-0.8); MONOCYTES % (AUTO) 7 % (2-9); NEUTROPHILS # (AUTO) 5.79 x10^3/uL (1.8-6.8); NEUTROPHILS % (AUTO) 78 % (42-75); PLATELET COUNT 306 x10^3/uL (130-400); RED BLOOD COUNT 5.09 x10^6/uL (4.38-5.82); RED CELL DISTRIBUTION WIDTH 17.7 % (9.4-14.8)
--- NOTE | 2019-07-09 08:41 | NUR ---
PT MED NOTED FOR PAIN 01/29
[2019-07-09 08:42] LABS: ALBUMIN 2.9 g/dL (3.4-5.0); ANION GAP 4 mmol/L (5-15); CALCIUM 8.8 mg/dL (8.5-10.1); CHLORIDE 104 mmol/L (98-107); CREATININE 1.06 mg/dL (0.7-1.3)
--- NOTE | 2019-07-09 08:45 | NUR ---
AFTER MEDICATION SP02 DROP TO 88%, 02 2L NC PLACED WITH EFFECT. CALL LIGHT W/I REACH, WARM BLANKET PROVIDED.
[2019-07-09 08:52] VITALS: BP 145/61
--- NOTE | 2019-07-09 08:52 | NUR ---
Casi santos in EDM - 07/09/19 at 0954 by GOLD Patient/Caregiver given discharge instructions and they have confirmed that they understand the instructions. Patient ambulatory with steady gait. Pt given meal tray to go.
--- NOTE | 2019-07-09 09:46 | NUR ---
GROIN AREA CLEANED WITH DERMAL WOUND CLEANSER AND PHYTOPLEX, AREA DRIED AND CALAZYME LOTION APPLIED. FEET ALSO CLEANED WITH PHYTOPLEX, NO SKIN BREAKDOWN NOTED, LOTION APPLIED. CLEAN SOCKS PROVIDED. ALL CLEANING SUPPLIES, AND BATH BASIN GIVEN TO PATIENT TO TAKE HOME.
[2019-07-09] MEDS ORDERED: NYSTATIN TOPICAL POWDER 15GM TP PRN (10:00)
--- NOTE | 2019-07-09 10:21 | NUR ---
GROIN AREA CLEANED AGAIN WITH PHYTOPLEX AND DERMAL SOUND AIR INTELLIGENCE SPECIALIST ALLOWED TO AIR DRY. NYSTATIN PWD APPLIED. PT GIVEN DETAIL CLEANING INST AND VERBALIZES UNDERSTANDING.
--- NOTE | 2019-07-09 10:23 | NUR ---
Patient/Caregiver given discharge instructions and they have confirmed that they understand the instructions. Patient ambulatory with WHEELED WALKER.
== END 2019-07-09 11:11 | disposition home or self-care (01) ==
LOC: ED 08:04
DX: B35.6 Tinea cruris (principal); R21 Rash and other nonspecific skin eruption; H16.423 Pannus (corneal), bilateral; I25.2 Old myocardial infarction; G43.909 Migraine, unspecified, not intractable, without status migrainosus; I11.0 Hypertensive heart disease with heart failure; I50.9 Heart failure, unspecified; J44.9 Chronic obstructive pulmonary disease, unspecified; I48.91 Unspecified atrial fibrillation; E78.5 Hyperlipidemia, unspecified; E11.9 Type 2 diabetes mellitus without complications; F17.210 Nicotine dependence, cigarettes, uncomplicated; Z86.73 Personal history of transient ischemic attack (TIA), and cerebral infarction without residual deficits
CPT/HCPCS: 36415; 80048; 82040; 83605; 84145; 85025; 87040; 96374; 96375; 99284; J2270; J2405

== ENCOUNTER 2019-08-29 15:13 | Emergency (ER) | payer MEDICARE, MEDICAID ==
[~2019-08-29] VITALS: Ht 170.2 cm; Wt 87.0 kg
--- NOTE | 2019-08-29 15:45 | NUR ---
PT RESTING IN GOWN IN [facility]. NADN. EQUAL BILATERAL RISE AND FALL OF CHEST OBSERVED FROM ROOM. PT REFUSING VS. PT REQUESTED WATER AT THIS TIME.
--- NOTE | 2019-08-29 16:21 | NUR ---
PT SLEEPING IN [facility] AT THIS TIME WITH CALL LIGHT WITHIN REACH.
--- NOTE | 2019-08-29 18:15 | NUR ---
PT URINATED ALL OVER FLOOR. PT INSTRUCTED ON NEED TO USE URINAL AND VERBALIZES UNDERSTANDING. PT D/C INSTRUCTIONS ANS PRESCRIPTIONS DISCUSSED. UNABLE TO ASSESS WHETHER OR NOT PT UNDERSTANDS, BECAUSE PT EXPRESSES LACK OF DESIRE/MOTIVATION TO LEARN. PT PROVIDED BAGGED BELONGINGS FOR D/C HOME. PT DENIES ANY OTHER NEEDS PERTAINING TO THIS VISIT. UNABLE TO OBTAIN VS PRIOR TO D/C BECAUSE PT REFUSES.
== END 2019-08-29 18:20 | disposition home or self-care (01) ==
LOC: ED 15:43
DX: S41.052A Open bite of left shoulder, initial encounter (principal); S41.051A Open bite of right shoulder, initial encounter; E11.9 Type 2 diabetes mellitus without complications; J44.9 Chronic obstructive pulmonary disease, unspecified; I48.91 Unspecified atrial fibrillation; I50.9 Heart failure, unspecified; Z86.73 Personal history of transient ischemic attack (TIA), and cerebral infarction without residual deficits; Z98.61 Coronary angioplasty status; W57.XXXA Bitten or stung by nonvenomous insect and other nonvenomous arthropods, initial encounter; Y93.89 Activity, other specified; Y92.410 Unspecified street and highway as the place of occurrence of the external cause; Y99.8 Other external cause status
CPT/HCPCS: 99283

== ENCOUNTER 2019-09-07 12:27 | Emergency (ER) | payer MEDICARE, MEDICAID ==
[~2019-09-07] VITALS: Ht 180.3 cm; Wt 80.0 kg
[2019-09-07 12:32] VITALS: BP 138/82
--- NOTE | 2019-09-07 13:16 | NUR ---
AFTER PT SEEN IN [place] BY PROVIDER PT LEFT WITHOUT DISCHARGE
== END 2019-09-07 13:18 | disposition home or self-care (01) ==
LOC: ED 13:12
DX: B86 Scabies (principal); I11.0 Hypertensive heart disease with heart failure; I50.9 Heart failure, unspecified; E11.9 Type 2 diabetes mellitus without complications; I25.2 Old myocardial infarction; I25.10 Atherosclerotic heart disease of native coronary artery without angina pectoris; J44.9 Chronic obstructive pulmonary disease, unspecified; I48.91 Unspecified atrial fibrillation; I48.92 Unspecified atrial flutter; Z86.73 Personal history of transient ischemic attack (TIA), and cerebral infarction without residual deficits
CPT/HCPCS: 99283

== ENCOUNTER 2019-09-29 13:21 | Emergency (ER) | payer MEDICARE, MEDICAID ==
[~2019-09-29] VITALS: Ht 167.6 cm; Wt 83.0 kg
[~2019-09-29 13:21] MED LIST changes: +MELA3TAB31 PO; -MELA3TAB56 PO
[2019-09-29 13:27] VITALS: BP 123/60
[2019-09-29] MEDS ORDERED: LIDOCAINE-MPF 1%, 5ML INFIL ONE (14:30)
[2019-09-29] MEDS ORDERED: LIDOCAINE-MPF 1%, 5ML ONE (14:31)
== END 2019-09-29 15:25 | disposition home or self-care (01) ==
LOC: ED 14:21
DX: L02.11 Cutaneous abscess of neck (principal); I25.2 Old myocardial infarction; J44.9 Chronic obstructive pulmonary disease, unspecified; I11.0 Hypertensive heart disease with heart failure; I50.9 Heart failure, unspecified; E78.5 Hyperlipidemia, unspecified; E11.9 Type 2 diabetes mellitus without complications; I48.91 Unspecified atrial fibrillation; I45.10 Unspecified right bundle-branch block; Z88.0 Allergy status to penicillin; Z86.73 Personal history of transient ischemic attack (TIA), and cerebral infarction without residual deficits; Z88.8 Allergy status to other drugs, medicaments and biological substances
CPT/HCPCS: 10060; 93005; 99283

== ENCOUNTER 2019-10-24 16:21 | Emergency (ER) | payer MEDICARE, MEDICAID ==
[~2019-10-24] VITALS: Ht 165.1 cm; Wt 82.3 kg
--- NOTE | 2019-10-24 16:27 | NUR ---
NAX1 @[id number]
[2019-10-24 16:38] VITALS: BP 120/64
[2019-10-24] MEDS ORDERED: LIDOCAINE-MPF 1%, 5ML ONE (17:07)
--- NOTE | 2019-10-24 17:11 | NUR ---
NÉSTOR PULLED FOR PROVIDER ADMIN
--- NOTE | 2019-10-24 17:20 | NUR ---
PROVIDER AT BEDSIDE FOR I&D
[2019-10-24] MEDS ORDERED: LIDOCAINE-MPF 1%, 5ML INFIL ONE (17:30)
== END 2019-10-24 17:53 | disposition home or self-care (01) ==
LOC: ED 17:51
DX: L02.212 Cutaneous abscess of back [any part, except buttock and flank] (principal); E11.9 Type 2 diabetes mellitus without complications; I11.9 Hypertensive heart disease without heart failure; Z86.73 Personal history of transient ischemic attack (TIA), and cerebral infarction without residual deficits; E78.5 Hyperlipidemia, unspecified; I48.92 Unspecified atrial flutter; J44.9 Chronic obstructive pulmonary disease, unspecified; I25.2 Old myocardial infarction; G43.909 Migraine, unspecified, not intractable, without status migrainosus; Z98.61 Coronary angioplasty status
CPT/HCPCS: 10060; 99283

== ENCOUNTER 2019-10-26 08:14 | Emergency (ER) | payer MEDICARE, MEDICAID ==
[~2019-10-26] VITALS: Ht 167.6 cm; Wt 80.7 kg
[2019-10-26 08:15] VITALS: BP 144/69
--- NOTE | 2019-10-26 08:45 | NUR ---
EMERGENCY MAN: PT TO ROOM FROM LOBBY GAIT SLOW AND STEADY
--- NOTE | 2019-10-26 08:48 | NUR ---
Note undone in EDM - 10/26/19 at 0851 by FRANTZ PT STATES HE FELL IN BATHROOM, HIT HEAD ON CLEANING SUPPLIES NEXT TO TOILET. "I THINK I GOT UP TOO FAST (AFTER GOING TO THE BATHROOM)", PASSED OUT "AND WOKE UP ON THE FLOOR". LAT CT LT INNER EYEBROW. DENIES VISION CHANGES. PT A&OX4, RESP EVEN & UNLABORED SPEECH CLEAR, SKIN OTHERWISE WNL. PT WAS AMBULATORY TO ED ROOM 25 W/ STEADY GAIT.
--- NOTE | 2019-10-26 09:07 | NUR ---
CHASE [place] BS FOR EXAM. PT HASN'T FILLED ANTIBIOTIC RX. ABCESS TO POSTERIOR NECK. PACKING REMOVED PER LOVELY. BANDAID OVER SITE.
--- NOTE | 2019-10-26 09:35 | NUR ---
PT AMBULATORY TO RN DESK, ASKING ABOUT DISCHARGE. INFORMED PT THAT MEDICATION WAS ORDERED, WOULD BE GIVEN SOON AND THEN PT WOULD BE DC'D. ASKED PT TO RETURN TO ED ROOM. PT COMPLIED.
[2019-10-26] MEDS ORDERED: CEPHALEXIN 500 MG CAPSULE ONE (09:42)
[2019-10-26] MEDS ORDERED: SULFAMETH./TRIMETHOPRIM DS 800MG/160MG TABLET ONE (09:42)
--- NOTE | 2019-10-26 09:45 | NUR ---
PT MEDICATED PER EMAR. PT ANXIOUS TO LEAVE, STATES HE HAS AN APPOINTMENT AT 1000. UNWILLING TO WAIT IN ED ROOM.
[2019-10-26] MEDS ORDERED: SULFAMETH./TRIMETHOPRIM DS 800MG/160MG TABLET PO ONE (10:00)
[2019-10-26] MEDS ORDERED: CEPHALEXIN 500 MG CAPSULE PO ONE (10:00)
== END 2019-10-26 10:12 | disposition home or self-care (01) ==
LOC: ED 09:24
DX: Z48.01 Encounter for change or removal of surgical wound dressing (principal)
CPT/HCPCS: 99283

== ENCOUNTER 2020-02-19 19:58 | Emergency (ER) | payer MEDICARE, MEDICAID ==
[~2020-02-19] VITALS: Ht 182.9 cm; Wt 83.9 kg
[2020-02-19 20:08] VITALS: BP 131/59
[2020-02-19 20:39] LABS: BASOPHILS % (AUTO) 0 % (0-1); EOSINOPHILS % (AUTO) 6 % (1-7); LYMPHOCYTES % (AUTO) 18 % (22-44); MEAN CORPUSCULAR HEMOGLOBIN 25.2 pg (27.5-34.5); MEAN PLATELET VOLUME 8.3 fL (7.4-10.4); MONOCYTES % (AUTO) 10 % (2-9); NEUTROPHILS % (AUTO) 66 % (42-75); PLATELET COUNT 249 x10^3/uL (130-400); RED BLOOD COUNT 5.06 x10^6/uL (4.38-5.82); RED CELL DISTRIBUTION WIDTH 15.9 % (9.4-14.8)
[2020-02-19 20:41] LABS: ALANINE AMINOTRANSFERASE 17 U/L (12-78); ALBUMIN 3.5 g/dL (3.4-5.0); ANION GAP 3 mmol/L (5-15); CALCIUM 8.9 mg/dL (8.5-10.1); CHLORIDE 103 mmol/L (98-107); CREATININE 1.19 mg/dL (0.7-1.3); MD NO; SALICYLATE LEVEL 2.4 mg/dL (2.8-20.0)
[2020-02-19 20:51] LABS: ALKALINE PHOSPHATASE 158 U/L (45-117); BILIRUBIN,TOTAL 0.4 mg/dL (0.2-1.0); TOTAL PROTEIN 8.1 g/dL (6.4-8.2)
--- NOTE | 2020-02-19 21:50 | NUR ---
LATE ENTRY D/T PT CARE: PT MOVED TO THIS RN'S CARE FROM [facility]. PT PLACED IN ROOM 2, SI PRECAUTIONS IN PLACED, BELONGINGS DOUBLE BAGGED, LABELLED, 2/2 LARGE RED BAGS PLACED IN LOCKER, WALKER ALSO LABELLED, EMPTIED AND PLACED OUT OF REACH SO THAT PT CAN USE WHEN NEEDED TO AMBULATE TO RESTROOM. COLLET DRILLER AWARE. PT NAD, DECON SHOWERED. PT URINE SAMPLE WALKED TO LAB, RESTING ON GURNEY WITH WARM BLANKETS. HARVINDERTM
--- NOTE | 2020-02-19 23:30 | NUR ---
LATE ENTRY D/T PT CARE: PT RESTING ON GURKIMBERLEY, NAD, PROVIDED MILK AND CRACKERS FOR COFMORT, NO CHANGE IN CONDITION, WCTM. SITTER IN LINE OF SIGHT, SI PRECAUTIONS IN PLACE, WAITING FOR TELEPSYCH
[2020-02-19 23:44] LABS: AMPHETAMINE SCREEN, URINE Negative (Negative); BARBITURATE SCREEN, URINE Negative (Negative); BENZODIAZEPINE SCREEN, URINE Negative (Negative); CANNABINOID SCREEN, URINE Negative (Negative); COCAINE SCREEN, URINE Negative (Negative); METHADONE SCREEN, URINE Negative (Negative); OPIATE SCREEN, URINE Negative (Negative)
--- NOTE | 2020-02-19 23:58 | NUR ---
MARY RN: TELE PSYCH PAGED
--- NOTE | 2020-02-20 00:47 | NUR ---
PT RESTING ON GURNEY, NAD, EYES CLOSED, NO CHANGE IN CONDITION, WCTM. SITTER IN LINE OF SIGHT, SI PRECAUTIONS IN PLACE, L2K
--- NOTE | 2020-02-20 01:55 | NUR ---
pt resting on hospital bed, no change in condition, nad, eyes closed, even and unlabored respirations, sitter in line of sight, wc. pt provided meal and pillow for comfort, hospital bed requested.
--- NOTE | 2020-02-20 03:03 | NUR ---
TP RN: CALLED [facility] AND SPOKE WITH TABLE KEEPER - THEY ARE CURRENTLY FULL AND UNABLE TO ACCEPT PATIENT AT THIS TIME. PACKET FAXED TO Mary, JACOB, ERIN CELAYA, MELISSA, [facility].
--- NOTE | 2020-02-20 03:09 | NUR ---
pt resting on GURNEY, no change in condition, nad, eyes closed, even and unlabored respirations, sitter in line of sight, wctm. WAITING FOR PT TO WAKE UP TO MOVE TO HOSPITAL BED.
--- NOTE | 2020-02-20 04:16 | NUR ---
TP RN: [facility] accepting. Dr. Aguirre.
--- NOTE | 2020-02-20 04:32 | NUR ---
[facility] TO ACCEPT PT, REPORT CALLED TO KRISTAL AT [facility], PT TO BE TRANSFERRED [facility]IA [facility] AT 0700. PT RESTING ON GURNEY, NAD, APPEARS COMFORTABLE, EYES CLOSED, SITTER IN LINE OF SIGHT. [facility]
--- NOTE | 2020-02-20 04:37 | NUR ---
breakfast tray ordered for pt.
--- NOTE | 2020-02-20 05:50 | NUR ---
pt resting on gurney, nad, eyes closed, appears comfortable, si precautions in place, sitter in line of sight, no change in condition, wctm. L2K, pt to transfer to [facility] at 0700.
--- NOTE | 2020-02-20 06:44 | NUR ---
pt resting on gurney, nad, eyes closed, appears comfortable, si precautions in place, sitter in line of sight, no change in condition, wctm. L2K, pt to transfer to [facility] at 0700.
--- NOTE | 2020-02-20 06:59 | NUR ---
bedside report to geovanni rn, pt care transferred at this time.
--- NOTE | 2020-02-20 07:00 | NUR ---
BEDSIDE REPORT RECEIVED FROM JUDI GO.
--- NOTE | 2020-02-20 07:22 | NUR ---
PT TRANSFERRED TO [facility]IA [facility], AMBULATED WITH STEADY GAIT WITH USE OF PERSONAL WALKER. ALL PERSONAL BELONGINGS GIVEN TO PT.
== END 2020-02-20 07:24 ==
LOC: ED 20:28
DX: R45.851 Suicidal ideations (principal); I10 Essential (primary) hypertension; J44.9 Chronic obstructive pulmonary disease, unspecified; I25.2 Old myocardial infarction; G43.909 Migraine, unspecified, not intractable, without status migrainosus; F17.210 Nicotine dependence, cigarettes, uncomplicated
CPT/HCPCS: 36415; 80053; 80307; 84443; 85025; 99285; 99406

== ENCOUNTER 2020-03-01 01:59 | Emergency (ER) | payer MEDICARE, MEDICAID ==
[~2020-03-01 01:59] MED LIST changes: -METF-649 PO; +METF-734 PO
--- NOTE | 2020-03-01 02:12 | NUR ---
PT STATES BEING CONSTIPATED FOR 3 DAYS, AND AND HIS HAVING SOME PAIN FROM THAT. PT PLACED IN GOWN, AND ERP AT BEDSIDE FOR EVAL
[2020-03-01 02:55] LABS: BASOPHILS % (AUTO) 1 % (0-1); EOSINOPHILS % (AUTO) 3 % (1-7); LYMPHOCYTES % (AUTO) 19 % (22-44); MD NO; MEAN CORPUSCULAR HEMOGLOBIN 25.4 pg (27.5-34.5); MEAN PLATELET VOLUME 8.6 fL (7.4-10.4); MONOCYTES % (AUTO) 14 % (2-9); NEUTROPHILS % (AUTO) 63 % (42-75); PLATELET COUNT 259 x10^3/uL (130-400); RED BLOOD COUNT 4.99 x10^6/uL (4.38-5.82); RED CELL DISTRIBUTION WIDTH 16.1 % (9.4-14.8)
[2020-03-01 03:03] LABS: ALANINE AMINOTRANSFERASE 22 U/L (12-78); ALBUMIN 3.3 g/dL (3.4-5.0); ANION GAP 3 mmol/L (5-15); CALCIUM 8.8 mg/dL (8.5-10.1); CHLORIDE 101 mmol/L (98-107)
[2020-03-01 03:06] LABS: ALKALINE PHOSPHATASE 173 U/L (45-117); BILIRUBIN,TOTAL 0.4 mg/dL (0.2-1.0); CREATININE 1.53 mg/dL (0.7-1.3)
[2020-03-01 04:00] VITALS: BP 141/63
--- NOTE | 2020-03-01 04:03 | NUR ---
PT RESTING IN BED, PT HAVING 8/10 ABDOMINAL PAIN, FLEET ENEMA ADMINISTERED PER MD ORDER. WILL REASSES BM
--- NOTE | 2020-03-01 04:37 | NUR ---
PT HAD SUCCESFUL LARGE SOLID BOWEL MOVEMENT. PT STATES FEELING A LOT BETTER. PT GIVEN D/C INSTRUCTIONS AND PT AMBULATED OUT WITH HOME WALKER. PT REFUSES TAXI VOUCHER.
== END 2020-03-01 04:53 | disposition home or self-care (01) ==
LOC: ED 02:29
DX: R10.84 Generalized abdominal pain (principal); K59.00 Constipation, unspecified; I48.92 Unspecified atrial flutter; G43.909 Migraine, unspecified, not intractable, without status migrainosus; I25.2 Old myocardial infarction
CPT/HCPCS: 36415; 74021; 80053; 83690; 85025; 99284

== ENCOUNTER 2020-05-16 16:12 | Emergency (ER) | payer MEDICARE, MEDICAID ==
[~2020-05-16] VITALS: Ht 177.8 cm; Wt 86.1 kg
[~2020-05-16 16:12] MED LIST changes: -CLIN300C8 PO; +CLIN300C9 PO; +FERR325T16 PO; +LORA-59 PO; -LORA10TA62 PO
[2020-05-16 17:06] LABS: BASOPHILS % (AUTO) 1 % (0-1); EOSINOPHILS % (AUTO) 4 % (1-7); LYMPHOCYTES % (AUTO) 11 % (22-44); MEAN CORPUSCULAR HEMOGLOBIN 25.3 pg (27.5-34.5); MEAN CORPUSCULAR HGB CONC 32.4 g/dL (33.2-36.2); MONOCYTES % (AUTO) 9 % (2-9); NEUTROPHILS % (AUTO) 76 % (42-75); PLATELET COUNT 264 x10^3/uL (130-400); RED BLOOD COUNT 5.42 x10^6/uL (4.38-5.82); RED CELL DISTRIBUTION WIDTH 16.9 % (9.4-14.8)
[2020-05-16 17:08] LABS: MD NO
[2020-05-16 17:17] LABS: ALBUMIN 3.5 g/dL (3.4-5.0); ANION GAP 7 mmol/L (5-15); CALCIUM 9.3 mg/dL (8.5-10.1); CHLORIDE 104 mmol/L (98-107); CREATININE 1.08 mg/dL (0.7-1.3)
[2020-05-16 17:18] LABS: SALICYLATE LEVEL < 1.7 mg/dL (2.8-20.0)
[2020-05-16 19:57] LABS: MICROSCOPIC INDICATED
[2020-05-16 20:08] LABS: AMPHETAMINE SCREEN, URINE Negative (Negative); BARBITURATE SCREEN, URINE Negative (Negative); BENZODIAZEPINE SCREEN, URINE Negative (Negative); CANNABINOID SCREEN, URINE Negative (Negative); COCAINE SCREEN, URINE Negative (Negative); METHADONE SCREEN, URINE Negative (Negative); OPIATE SCREEN, URINE Negative (Negative)
--- NOTE | 2020-05-17 00:52 | NUR ---
PT WAS ACCEPTED PER NEGATIE COVID TEST AT [facility]. PT COVID TEST CAME UP POSITIVE. PT DENIED ANY DIFFICULTY BREATHING OR CP. PT RESTING IN BED, PT N MONITOR WITH VSS
--- NOTE | 2020-05-17 01:00 | NUR ---
MARY RN: PACKET FAXED TO [facility], [facility], [facility], [facility], AND [facility].
--- NOTE | 2020-05-17 01:33 | NUR ---
TP RN: CONFIRMATION FAX RECEIVED FROM ALL FACILITIES.
--- NOTE | 2020-05-17 02:17 | NUR ---
PT RESTING IN BED, PT BREATHING EQUAL AND UNLABORED. PT E ROOM SI SECURED WITH SITTER AT PT DOOR. PT HS NO CURRENT WANTS OR NEED AT THIS TIME.
--- NOTE | 2020-05-17 07:01 | NUR ---
REPORT TO OMERO GO
--- NOTE | 2020-05-17 08:00 | NUR ---
PT SITING ON GURNEY NAD NOTED, PT GIVEN MEAL TRAY, SI PRECAUTIONS OBSERVED. NO OTHER NEEDS AT THIS TIME
--- NOTE | 2020-05-17 11:40 | NUR ---
PT STATING HE HAS TO HAVE A BOWEL MOVEMENT. PT REFUSING TO WEAR MASK, PT OFFERED A BSC, PT BECOMES ANGRY TO QUARTER TRIMMER, YELLS "YOU GET THAT OUT OF HERE, IM NOT GOING TO USE THAT THING". EDUCATED PT D/T ISOLATION PRECAUTIONS AND REFUSING TO WEAR MASK BSC IS THE OPTION AT THIS TIME, PT CONTINUES TO REFUSE. MEAL TRAY ORDERED
--- NOTE | 2020-05-17 12:15 | NUR ---
task rn: resting with eyes closed
--- NOTE | 2020-05-17 13:15 | NUR ---
assumed care of pt. report from [facility]. pt was initially here for SI. per repot, legal hold has been removed after evaluation by psych FIRE SAFETY INSPECTOR. pt is COVID+ and is awaiting placeen in COVID housing as he is homeless pt is currently eating lunch. no apparent distress
--- NOTE | 2020-05-17 14:00 | NUR ---
no changes. pt resting in position of comfort. no apparent distress awaiting COVID housing placement
--- NOTE | 2020-05-17 14:56 | NUR ---
pt is curretnly resting in position of comfort. no apparent distress awaiting COVID housing placement, awaiting SW
--- NOTE | 2020-05-17 15:30 | NUR ---
pt has been accepted to [facility]. awaiting transport. pt updated on POC
--- NOTE | 2020-05-17 16:00 | NUR ---
pt belongings have been returned. awaiting transport. pt has no new c/o. no apparent distress
[2020-05-17 17:24] VITALS: BP 121/89
== END 2020-05-17 17:27 | disposition home or self-care (01) ==
LOC: ED 18:22
DX: U07.1 COVID-19 (principal); R45.851 Suicidal ideations; I11.9 Hypertensive heart disease without heart failure; J44.9 Chronic obstructive pulmonary disease, unspecified; I48.91 Unspecified atrial fibrillation; I25.2 Old myocardial infarction; I11.0 Hypertensive heart disease with heart failure; I50.9 Heart failure, unspecified; Z86.73 Personal history of transient ischemic attack (TIA), and cerebral infarction without residual deficits; Z98.61 Coronary angioplasty status
CPT/HCPCS: 36415; 80048; 80299; 80307; 80320; 80329; 81001; 82040; 82140; 82607; 84439; 84443; 85025; 87426; 99284; G0480

== ENCOUNTER 2020-09-07 12:57 | Emergency (ER) | payer MEDICARE, MEDICAID ==
[~2020-09-07] VITALS: Ht 167.6 cm; Wt 89.8 kg
[~2020-09-07 12:57] MED LIST changes: -ASPI-515 PO; +ASPI-963 PO; +FERR324T23 PO; -FERR325T16 PO; -FOLI-17 PO; -FOLI0.8T2 PO; +FOLI0.8T5 PO; +FOLI1TAB32 PO; +MEMA10TA56 PO; +NICO-486 TD
[2020-09-07 12:59] VITALS: BP 119/63
--- NOTE | 2020-09-07 13:05 | NUR ---
pt her for mulitple scabs to bilat arms. denies injury. LILIBETH. pt has no otheer c/o. no family at bedside. no bleeding
--- NOTE | 2020-09-07 13:37 | NUR ---
report to Ne[facility] GO and Aldo RN for lunch
--- NOTE | 2020-09-07 13:59 | NUR ---
Patient given discharge instructions and Rx, they have confirmed that they understand the instructions. Patient ambulatory with steady gait.
== END 2020-09-07 14:06 | disposition home or self-care (01) ==
LOC: ED 13:10
DX: L03.114 Cellulitis of left upper limb (principal); L03.113 Cellulitis of right upper limb; I48.91 Unspecified atrial fibrillation; E11.9 Type 2 diabetes mellitus without complications; J44.9 Chronic obstructive pulmonary disease, unspecified; I25.10 Atherosclerotic heart disease of native coronary artery without angina pectoris; E78.5 Hyperlipidemia, unspecified; I11.0 Hypertensive heart disease with heart failure; I50.9 Heart failure, unspecified; I25.2 Old myocardial infarction; Z98.61 Coronary angioplasty status; Z86.73 Personal history of transient ischemic attack (TIA), and cerebral infarction without residual deficits; Z88.0 Allergy status to penicillin
CPT/HCPCS: 99283

== ENCOUNTER 2020-11-09 04:22 | Emergency (ER) | payer MEDICARE, MEDICAID ==
--- NOTE | 2020-11-09 04:53 | NUR ---
SEE CODE SHEET
--- NOTE | 2020-11-09 05:03 | NUR ---
PT PRONOUNCED AT 0980
[2020-11-09] MEDS ORDERED: MAGNESIUM SULFATE 1 GM/2 ML ONE (05:07)
[2020-11-09] MEDS ORDERED: AMIODARONE 50 MG/ML, 3ML ONE (05:07)
[2020-11-09] MEDS ORDERED: EPINEPHRINE SYRINGE 0.1 MG/ML, 10ML ONE (05:07)
[2020-11-09] MEDS ORDERED: CODE BLUE RESPONSE XX ONE (05:07)
--- NOTE | 2020-11-09 05:35 | NUR ---
STRETCHER LEVELER OPERATOR HELPER AMY HERE NOW. CALLED BY THIS RN AT 0515. PT. HAS NO NEXT OF KIN.
--- NOTE | 2020-11-09 05:40 | NUR ---
CALLED [employer] [facility] AND SPOKE WITH DUANE. PT. IS SUITABLE FOR TISSUE DONATION PER DUANE. REFERRAL #[id number].
--- NOTE | 2020-11-09 06:28 | NUR ---
ROOF TRUSS BUILDER AMY BAG AND TAGED PT AND STATED THAT SOME ONE WILL ELECTRICAL MACHINE BUILDER BODY AT LATER TIME. [facility] AND PLACED IN [place]
== END 2020-11-09 06:32 ==
LOC: ED 05:00
DX: I46.9 Cardiac arrest, cause unspecified (principal); S06.0X0A Concussion without loss of consciousness, initial encounter; J96.01 Acute respiratory failure with hypoxia; R41.82 Altered mental status, unspecified; E11.40 Type 2 diabetes mellitus with diabetic neuropathy, unspecified; I11.0 Hypertensive heart disease with heart failure; I50.9 Heart failure, unspecified; I25.2 Old myocardial infarction; E78.5 Hyperlipidemia, unspecified; J44.9 Chronic obstructive pulmonary disease, unspecified; I48.91 Unspecified atrial fibrillation; F17.200 Nicotine dependence, unspecified, uncomplicated; Z86.73 Personal history of transient ischemic attack (TIA), and cerebral infarction without residual deficits; X58.XXXA Exposure to other specified factors, initial encounter; Y93.89 Activity, other specified; Y92.009 Unspecified place in unspecified non-institutional (private) residence as the place of occurrence of the external cause; Y99.8 Other external cause status
CPT/HCPCS: 80047; 82962; 92950; 92960; 93005; 99291; J0282; J3475